=== PATIENT | male | born 1985 | race Two or more races ===

== ENCOUNTER 2018-11-14 11:40 | Inpatient (IN) | payer MEDICAID ==
[2018-11-14] VITALS (9 sets, daily range): BP systolic 114–131; BP diastolic 68–79
[~2018-11-14] VITALS: Ht 172.7 cm; Wt 94.1 kg
--- NOTE | 2018-11-14 11:54 | NUR ---
ED Nurse Note: Pt came in from home due to upper abdomen that radiates to RLQ abdomen x 10 days, also c/o fever, chills, and nausea. HR 107, Oral temp 100.7F at triage. AOx4, other VSS. Will cont to monitor.
[2018-11-14] MEDS ORDERED: Acetaminophen 500mg (ES) tab ORAL ONE (12:15)
[2018-11-14 12:34] LABS: APPEARANCE,URINE CLEAR; BILIRUBIN, URINE NEGATIVE (NEGATIVE); COLOR,URINE BROWN; GLUCOSE, URINE (UA) NEGATIVE (NEGATIVE); KETONES,URINE 2+ (NEGATIVE); LEUKOCYTE ESTERASE ,URINE 1+ (NEGATIVE); NITRITE,URINE NEGATIVE (NEGATIVE); PH,URINE 6 (4.5-8.0); PROTEIN,URINE 2+ (NEGATIVE); UROBILINOGEN,URINE 1 MG/DL (0.0-1.0)
--- NOTE | 2018-11-14 12:36 | Emergency Room Report ---
History of Present Illness General Chief Complaint: Abdominal Pain Source: Patient Present Illness HPI 33-year-old male with no significant past medical history here complaining of 10 days of abdominal pain and nausea. Patient reports that he started having abdominal pain in the epigastric region 10 days ago after eating a fatty meal which is now gradually radiating to the right upper quadrant mid epigastric as well as right lower quadrant. Patient is rating the pain 7 out of 10 with radiation intermittent. Has not taken medication for pain. Patient reports that he started having low-grade fever about a week ago and has been fluctuating ever since. Denies bloody emesis, diarrhea, constipation, blood in stool. Denies recent URI symptoms recent travel. Denies alcohol intake, smoking, drug use. Denies any history of surgeries. Denies urinary symptoms, hematuria, testicular pain and swelling. Allergies: Coded Allergies: No Known Allergies (Unverified , 11/14/18) Patient History Past Medical History: see triage record Past Surgical History: unable to obtain Pertinent Family History: none Immunizations: UTD Reviewed Nursing Documentation: PMH: Agreed; PSxH: Agreed Nursing Documentation-PMH Past Medical History: No Stated History Review of Systems All Other Systems: negative except mentioned in HPI Physical Exam Vital Signs Date Time Temp Pulse Resp B/P (MAP) Pulse Ox O2 Delivery O2 Flow Rate FiO2 11/14/18 11:47 100.8 107 18 124/72 (89) 96 Room Air Sp02 EP Interpretation: reviewed, normal General Appearance: normal inspection, well appearing, no apparent distress, alert, GCS 15 Head: normocephalic, atraumatic Eyes: bilateral eye normal inspection, bilateral eye PERRL ENT: normal ENT inspection, hearing grossly normal Neck: normal inspection, full range of motion, supple Respiratory: normal inspection, chest non-tender, lungs clear, normal breath sounds, no wheezing Cardiovascular #1: normal inspection, normal peripheral pulses, no edema, no murmur, normal capillary refill Gastrointestinal: no mass, no organomegaly, no peritonitis, no bruit, no pulsatile mass, guarding - Epigastric, right upper quadrant, right lower quadrant. pos McBurney's Rovsing's. neg Obturator and psoas Rectal: deferred Genitourinary: no CVA tenderness Musculoskeletal: normal inspection, back normal Neurologic: normal inspection, alert, oriented x3 Psychiatric: normal inspection, judgement/insight normal Skin: no rash Lymphatic: normal inspection, no adenopathy Medical Decision Making PA Attestation All my diagnosis and treatment plans were reviewed ad discussed with my supervising physician Dr. Liz Diagnostic Impression: Primary Impression: Appendicitis with perforation ER Course 33-year-old male with no significant past medical history here complaining of 10 days of abdominal pain and nausea. Patient reports that he started having abdominal pain in the epigastric region 10 days ago after eating a fatty meal which is now gradually radiating to the right upper quadrant mid epigastric as well as right lower quadrant. Patient is rating the pain 7 out of 10 with radiation intermittent. Has not taken medication for pain. Patient reports that he started having low-grade fever about a week ago and has been fluctuating ever since. Denies bloody emesis, diarrhea, constipation, blood in stool. Denies recent URI symptoms recent travel. Denies alcohol intake, smoking, drug use. Denies any history of surgeries. Denies urinary symptoms, hematuria, testicular pain and swelling. Ddx considered but are not limited to: appendicitis, cholycisitis, gastritis, gasthroentritis, UTI, pylonephritis, SBO, diverticulitis, influenza with GI manifestation, OH, Vital signs: are WNL, pt. is afebrile H&PE are most consistent with: Appendicitis ORDERS: abdominal CT, abdominal pain set, EKG, ED INTERVENTIONS: IV fluids, Pepcid, Tylenol, Zofran, Zosyn Patient was admited with diagnosis of appendicitis to Dr. Cardenas and sucarltonon Dr Chang under supervision of : Shalonda pt stable at time of admission wbc 13.8 EKG Diagnostic Results Rate: normal Rhythm: NSR ST Segments: no acute changes Chest X-Ray Diagnostic Results Chest X-Ray Diagnostic Results : Chest X-Ray Ordered: Yes # of Views/Limited/Complete: 1 View Indication: Other EP Interpretation: Yes PA Xray: Interpretation reviewed, by supervising MD, and agrees with findings. Interpretation: no consolidation, no effusion, no pneumothorax Impression: No acute disease Electronically Signed by: teresita davalos PA-C CT/MRI/US Diagnostic Results CT/MRI/US Diagnostic Results : Imaging Test Ordered: abd/pelvis CT contrast Impression appendicis and inflammation at site of appendix Last Vital Signs Date Time Temp Pulse Resp B/P (MAP) Pulse Ox O2 Delivery O2 Flow Rate FiO2 11/14/18 11:56 107 18 Room Air 11/14/18 11:47 100.8 124/72 (89) 96 Disposition: ADMITTED INPATIENT Condition: Stable Scripts No Active Prescriptions or Reported Meds Teresita Palacio Nov 14, 2018 12:36
[2018-11-14 12:44] LABS: BASOPHILS % (AUTO) 0.4 % (0.0-2.0); EOSINOPHILS % (AUTO) 0.2 % (0.0-3.0); HEMOGLOBIN 13.7 G/DL (14.2-18.0); LYMPHOCYTES % (AUTO) 7.9 % (20.0-45.0); MEAN CORPUSCULAR VOLUME 88 FL (80-99); MONOCYTES % (AUTO) 8.4 % (1.0-10.0); NEUTROPHILS % (AUTO) 83.1 % (45.0-75.0); PLATELET COUNT 375 K/UL (150-450); RED BLOOD COUNT 4.67 M/UL (4.70-6.10); RED CELL DISTRIBUTION WIDTH 10.5 % (11.6-14.8); WHITE BLOOD COUNT 13.8 K/UL (4.8-10.8)
--- NOTE | 2018-11-14 12:54 | Diagnostic Imaging Report ---
Indication: Chest pain Comparison: None A single view chest radiograph was obtained. Findings: Cardiomediastinal appearance is within normal limits for age. The lungs are clear. Pulmonary vascularity is appropriate. The diaphragmatic contour is smooth and costophrenic angles are sharp. No pleural effusions are identified. The bones are unremarkable. Impression: No acute findings
[2018-11-14 13:10] LABS: ALANINE AMINOTRANSFERASE 74 U/L (12-78); ALBUMIN 3.4 G/DL (3.4-5.0); ALBUMIN/GLOBULIN RATIO 0.6 (1.0-2.7); ALKALINE PHOSPHATASE 152 U/L (46-116); ANION GAP 10 mmol/L (5-15); ASPARTATE AMINO TRANSFERASE 20 U/L (15-37); BILIRUBIN,TOTAL 0.9 MG/DL (0.2-1.0); BLOOD UREA NITROGEN 11 mg/dL (7-18); CALCIUM 9.2 MG/DL (8.5-10.1); CARBON DIOXIDE 27 MMOL/L (21-32); CHLORIDE 102 MMOL/L (98-107); CREATINE KINASE 90 U/L (26-308); POTASSIUM 3.9 MMOL/L (3.5-5.1); SODIUM 139 MMOL/L (136-145)
--- NOTE | 2018-11-14 13:40 | Diagnostic Imaging Report ---
Indication: Abdominal pain Technique: Continuous helical transaxial imaging of the abdomen and pelvis was obtained from the lung bases to the pubic symphysis. No intravenous contrast was administered. Coronal 2-D reformats were also obtained. Automatic Exposure Control was utilized. Total Dose length Product (DLP): 968.[address] Dose Index Volume (CTDIvol): 17.49 mGy Comparison: none Findings: The lung bases are clear. Nonenhanced solid organs are grossly unremarkable. In the right lower quadrant there is a marked amount of inflammation present. The appendix is not identified but there are 2 calcifications within the area of inflammation or phlegmon. There is no fluid collection that is drainable. There are small nodes adjacent mesentery which are probably reactive or inflammatory. There is thickening of the anterior pararenal fascia due to the inflammation. Bowel gas pattern is nonobstructive. Bladder is nondistended. There is no hydronephrosis. IMPRESSION: Marked inflammation in the right lower quadrant in the expected location of the appendix. 2 calcifications in the central aspect of what appears to be a phlegmon may be appendicoliths. The findings are concerning for acute appendicitis with rupture. No drainable abscess identified. The CT scanner at [facility] is accredited by the [employer] and the scans are performed using dose optimization techniques as appropriate to a performed exam including Automatic Exposure control.
[2018-11-14] MEDS ORDERED: Piperacillin/Tazobactam 3.375 GM in NS 110 ML IVPB ONE (14:00)
--- NOTE | 2018-11-14 14:15 | NUR ---
ED Nurse Note: Pt ambulates to the bathroom with steady gait.
--- NOTE | 2018-11-14 15:17 | NUR ---
ED Nurse Note: Reprot given to MINH Alonso at ext [phone]. Pt to be transfered to room 314-1 on [facility] per protocol.
--- NOTE | 2018-11-14 15:45 | NUR ---
NURSE NOTES: Pt a/o x 4, Macedonian speaking. Pt came to the unit on the gurney with . c/o abdominal pain as 11/19. Pt keep NPO. IV is patent. Unit orientation was given. Bed in lowest position, call light within reach. Will continue to monitor.
[2018-11-14] MEDS ORDERED: Morphine Sulfate 2mg/ml Inj(IV/IM USE ONLY) IVP PRN (16:00)
--- NOTE | 2018-11-14 17:45 | History and Physical Report ---
DATE OF ADMISSION: 11/14/2018 REASON FOR ADMISSION: 1. Abdominal pain. 2. Ruptured appendix. HISTORY OF PRESENT ILLNESS: The patient is a 33-year-old gentleman with no significant past medical history, who presented to emergency room complaining of 10 days of abdominal pain, nausea. The patient had no vomiting or diarrhea. The patient stated abdominal pain was mainly in the epigastric region, starting 10 days ago, which he attributed to a heavy fatty meal, but had progressively gotten worse. As such, he presented in the emergency room for further evaluation and care. CT of the abdomen and pelvis was conducted, which demonstrated marked inflammation in the right lower quadrant, expected location of the appendix with 2 calcifications in the central aspect, which appeared to be a phlegmon or appendicolith. The findings were concerning for acute appendicitis with ruptured. No drainable abscess was identified. As such, the patient was admitted. General Surgery was consulted. ALLERGIES: No known drug allergies. PAST MEDICAL HISTORY: None. PAST SURGICAL HISTORY: None. FAMILY HISTORY: Positive for hypertension and diabetes. REVIEW OF SYSTEMS: NEUROLOGIC: The patient denies headache, change in vision, syncope, presyncopal episodes. CARDIOVASCULAR: No current chest pain, palpitations, or angina. PULMONARY: No difficulty breathing. No cough or sputum. GASTROINTESTINAL/GENITOURINARY: The patient is having nausea and abdominal pain. No diarrhea. ENDOCRINOLOGY: No night sweats, fever, or chills. MUSCULOSKELETAL: The patient is feeling weak, tired, and fatigued. LABORATORY DATA: Laboratories dated November 14, 2018, white cell count 13.8, hemoglobin 13.7, and platelet count 375,000. Sodium 139, potassium 3.9, BUN 11, creatinine 1. Troponin zero. PHYSICAL EXAMINATION: VITAL SIGNS: Blood pressure 121/68, respiratory rate 20, pulse 98, temperature 99.8, 99% oxygen saturation on room air. GENERAL: The patient is awake, alert, not in distress. HEENT: Extraocular muscles intact. No lymphadenopathy noted. Oropharyngeal mucosa is clear and dry. CARDIOVASCULAR: S1, S2. No rubs or gallops. Regular rate. PULMONARY: Clear to auscultation bilaterally. No rales, rhonchi, or wheezes. ABDOMINAL: Mild right lower quadrant tenderness in the epigastric area with fair bowel sounds. EXTREMITIES: No edema noted. ASSESSMENT AND PLAN: 1. Abdominal pain secondary to ruptured appendix. At this time, the patient will be initiated on IV antibiotics and fluids along with p.o. pain medication. General surgeon will be consulted for appendicitis with rupture and appendectomy. 2. Volume depletion. We will continue IV fluids. 3. DVT prophylaxis, with SCDs. Rubens Cole MD DR: Chau JOB#: [id number] CC:
[2018-11-14] MEDS ORDERED: Sterile Water Irrig 1000ml IRRIG ONE (19:00)
[2018-11-14] MEDS ORDERED: NS Irrig 1000ml ONE (19:00)
[2018-11-14] MEDS ORDERED: Neostigmine 1mg/ml 10ml Inj ONE (19:00)
[2018-11-14] MEDS ORDERED: LR 1000ml ONE (19:00)
--- NOTE | 2018-11-14 19:29 | Pre-Procedure Note/Attestation ---
Pre-Procedure Note/Attestation Complete Prior to Procedure Planned Procedure: not applicable Procedure Narrative: Exploratory Laparotomy Indications for Procedure Pre-Operative Diagnosis: Acute perforated appendicitis Attestation I attest that I discussed the nature of the procedure; its benefits; risks and complications; and alternatives (and the risks and benefits of such alternatives ), prior to the procedure, with the patient (or the patient's legal union representative). I attest that, if there was a reasonable possibility of needing a blood transfusion, the patient (or the patient's legal union representative) was given the [facility] standardized written summary, pursuant to the [place] Blood Safety Act ([place] Health and Safety Code # 1645, as amended). I attest that I re-evaluated the patient just prior to the surgery and that there has been no change in the patient's H&P, except as documented below: Lanie Chang MD Nov 14, 2018 19:29
--- NOTE | 2018-11-14 19:30 | NUR ---
NURSE NOTES: Patient left the unit for surgery.
--- NOTE | 2018-11-14 19:45 | NUR ---
HAND-OFF: Report given to MINH Salmeron.
--- NOTE | 2018-11-14 19:45 | Consultation ---
DATE OF CONSULTATION: 11/14/2018 PREOPERATIVE CONSULTATION CONSULTING PHYSICIAN: Lanie Chang M.D. REFERRING PHYSICIAN: ER physician. REASON FOR CONSULTATION: Abdominal pain. HISTORY OF PRESENT ILLNESS: This is a 33-year-old male, who presented to emergency room complaining of abdominal pain for 1 week. He stated that the pain initially was at epigastrium and then it localized at right lower quadrant. He had nausea, but no vomiting. He had a normal bowel movement today. He stated that in the last 3 or 4 days, he has been having fever and chills, but he denies cough, dysuria, or frequency. He denies previous history of similar pain. PAST MEDICAL HISTORY: He denies allergies, asthma, diabetes, hypertension, cardiac and renal diseases. SURGERIES: Include ORIF of the right tibia. MEDICATIONS: None. SOCIAL HISTORY: The patient is a 33-year-old male, who is and father of three children. He works as a route delivery driver. Denies smoking and drinking. REVIEW OF SYSTEMS: Noncontributory. PHYSICAL EXAMINATION: GENERAL: The patient appeared to be a well-developed, well-nourished, 33-year-old, male, lying on the bed, complaining of abdominal pain. HEENT: Head is normocephalic and atraumatic. Eyes, pupils are equal, round, and reactive to light. Mouth is clear. NECK: There is no palpable thyromegaly or adenopathy. CHEST: Clear to auscultation and percussion. HEART: There is no gallop or murmur. S1 and S2 are within normal limits. ABDOMEN: Soft and flat with tenderness and rebound tenderness at right lower quadrant. Bowel sounds are present. There is no palpable organomegaly. GENITAL: Deferred. EXTREMITIES: Within normal limits. LABORATORY DATA: CBC has shown a WBC of 13,000 with a left shift. Chemistry and UA is normal. CAT scan of the abdomen has been interpreted as acute appendicitis with rupture. There is no drainable abscess, but the patient had a phlegmon. ASSESSMENT: Acute abdomen. PLAN: After rehydration, the patient will undergo exploratory laparotomy, possible appendectomy with drainage of the abscess. The risks and benefits have been explained to him. He understood and granted the consent. Lanie Chang M.D. DR: TOM JOB#: [id number] CC:
[2018-11-14] MEDS ORDERED: Bacitracin 50000 Units Vial ONE (19:47)
[2018-11-14] MEDS ORDERED: NeoSporin Gu Irrig 1ml Amp IRRIG ONE (19:47)
[2018-11-14] MEDS ORDERED: Propofol 200mg/20ml IV ONE ×2 (19:48→19:50)
[2018-11-14] MEDS ORDERED: Dexamethasone 4mg/ml vial ONE (19:48)
[2018-11-14] MEDS ORDERED: Lidocaine 1% MPF 10mg/ml 5ml ONE (19:48)
[2018-11-14] MEDS ORDERED: fentaNYL 100 mcg/2 mL IV ONE (19:49)
[2018-11-14] MEDS ORDERED: Metoclopramide 10mg/2ml Inj IVP PRN ×2 (20:15→23:01)
[2018-11-14] MEDS ORDERED: Hydromorphone 0.5mg/0.5ml inj IVP PRN (20:15)
[2018-11-14] MEDS ORDERED: LORazepam Inj 2mg/ml 1ml IV PRN (20:15)
[2018-11-14] MEDS ORDERED: fentaNYL 100 mcg/2 mL IV PRN (20:15)
[2018-11-14] MEDS ORDERED: Ketorolac 30mg Inj IV PRN ×2 (20:15)
[2018-11-14] MEDS ORDERED: Acetaminophen (Non formulary) 100 ML IV ONE (20:15)
[2018-11-14] MEDS ORDERED: HYDROcodone/Acetamin 7.5/325 tab ORAL PRN (20:15)
[2018-11-14] MEDS ORDERED: DiphenhydrAMINE 50mg/ml Inj IVP PRN (20:15)
[2018-11-14] MEDS ORDERED: Labetalol 5mg/ml 20ml vial IV PRN (20:15)
[2018-11-14] MEDS ORDERED: HYDROcodone/Acetamin 5/325 tab ORAL PRN (20:15)
[2018-11-14] MEDS ORDERED: Midazolam 2mg/2ml Inj IVP PRN (20:15)
[2018-11-14] MEDS ORDERED: oxyCODONE HCL/Acetaminophen 5/325mg ORAL PRN (20:15)
[2018-11-14] MEDS ORDERED: Atropine Sulfate 0.4mg/ml inj IVP PRN (20:15)
[2018-11-14] MEDS ORDERED: Meperidine 50mg/ml Inj(FOR RIGORS ONLY) IVP PRN (20:15)
[2018-11-14] MEDS ORDERED: LR 1000ml 1,000 ML IVLG SCH (20:15)
--- NOTE | 2018-11-14 20:15 | Anethesia Preoperative Eval ---
Anesthesia Pre-op PMH/ROS General Date of Evaluation: Nov 14, 2018 Time of Evaluation: 19:29 Anesthesiologist: Bronwyn ASA Score: ASA 2 - Emergency Mallampati Score Class I : Soft palate, uvula, fauces, pillars visible Class II: Soft palate, uvula, fauces visible Class III: Soft palate, base of uvula visible Class IV: Only hard plate visible Mallampati Classification: Class II Surgeon: Charlene Diagnosis: Abd Pain Surgical Procedure: Exploratory Laparotomy Anesthesia History: none Family History: no anesthesia problems Allergies: Coded Allergies: No Known Allergies (Unverified , 11/14/18) Medications: see eMAR Patient NPO?: Yes NPO Date: Nov 14, 2018 NPO Time: 0800 Past Medical History PSxH Narrative: Ortho Sx Anesthesia Pre-op Phys. Exam Physician Exam Last Vital Signs Date Time Temp Pulse Resp B/P (MAP) Pulse Ox O2 Delivery O2 Flow Rate FiO2 11/14/18 15:50 99.1 77 16 131/76 (94) 99 11/14/18 15:46 Room Air Constitutional: NAD Neurologic: CN 2-12 intact Cardiovascular: RRR Respiratory: CTA Gastrointestinal: S/NT/ND Airway Exam Mallampati Score: Class II MO: full ROM: limited Teeth: intact Anesthesia Pre-op A/P Labs Hematology Test 11/14/18 12:22 White Blood Count 13.8 K/UL (4.8-10.8) H Red Blood Count 4.67 M/UL (4.70-6.10) L Hemoglobin 13.7 G/DL (14.2-18.0) L Hematocrit 41.0 % (42.0-52.0) L Mean Corpuscular Volume 88 FL (80-99) Mean Corpuscular Hemoglobin 29.3 PG (27.0-31.0) Mean Corpuscular Hemoglobin Concent 33.3 G/DL (32.0-36.0) Red Cell Distribution Width 10.5 % (11.6-14.8) L Platelet Count 375 K/UL (150-450) Mean Platelet Volume 6.9 FL (6.5-10.1) Neutrophils (%) (Auto) 83.1 % (45.0-75.0) H Lymphocytes (%) (Auto) 7.9 % (20.0-45.0) L Monocytes (%) (Auto) 8.4 % (1.0-10.0) Eosinophils (%) (Auto) 0.2 % (0.0-3.0) Basophils (%) (Auto) 0.4 % (0.0-2.0) Coagulation Test 11/14/18 12:22 Prothrombin Time 10.8 SEC (9.30-11.50) Prothromb Time International Ratio 1.0 (0.9-1.1) Activated Partial Thromboplast Time 33 SEC (23-33) Chemistry Test 11/14/18 12:22 Sodium Level 139 MMOL/L (136-145) Potassium Level 3.9 MMOL/L (3.5-5.1) Chloride Level 102 MMOL/L (98-107) Carbon Dioxide Level 27 MMOL/L (21-32) Anion Gap 10 mmol/L (5-15) Blood Urea Nitrogen 11 mg/dL (7-18) Creatinine 1.0 MG/DL (0.55-1.30) Estimat Glomerular Filtration Rate > 60 mL/min (>60) Glucose Level 154 MG/DL (74-106) H Calcium Level 9.2 MG/DL (8.5-10.1) Total Bilirubin 0.9 MG/DL (0.2-1.0) Aspartate Amino Transf (AST/SGOT) 20 U/L (15-37) Alanine Aminotransferase (ALT/SGPT) 74 U/L (12-78) Alkaline Phosphatase 152 U/L (46-116) H Total Creatine Kinase 90 U/L (26-308) Troponin I 0.000 ng/mL (0.000-0.056) Total Protein 8.8 G/DL (6.4-8.2) H Albumin 3.4 G/DL (3.4-5.0) Globulin 5.4 g/dL Albumin/Globulin Ratio 0.6 (1.0-2.7) L Lipase 128 U/L (73-393) Risk Assessment & Plan Assessment: ASA 2E Plan: GA, SED, GlideScope Go Pre-Antibiotics Dru Gram Ancef IV Given Within 1 Hr of Incision: Yes Time Given: 20:01 Enrico Barnhart MD Nov 14, 2018 20:15
--- NOTE | 2018-11-14 20:28 | Immediate Post-Op Evaluation ---
Immediate Post-Op Evalulation Immediate Post-Op Evalulation Procedure: Exploratory Laparotomy Date of Evaluation: Nov 14, 2018 Time of Evaluation: 21:50 IV Fluids: 1000 LR Blood Products: 0 Estimated Blood Loss: 25 Urinary Output: 50 Blood Pressure Systolic: 118 Blood Pressure Diastolic: 71 Pulse Rate: 72 Respiratory Rate: 16 O2 Sat by Pulse Oximetry: 95 Temperature (Fahrenheit): 99 Pain Score (1-10): 3 Nausea: No Vomiting: No Complications 0 Patient Status: awake, reacts, patent, extubated, none Hydration Status: adequate Dru Gram Ancef IV Given Within 1 Hr of Incision: Yes Time Given: 20:01 Enrico Barnhart MD Nov 14, 2018 20:28
--- NOTE | 2018-11-14 20:30 | 48 Hour Post Anesthesia Eval ---
Post Anesthesia Evaluation Procedure: Exploratory Laparotomy Date of Evaluation: Nov 14, 2018 Time of Evaluation: 23:53 Blood Pressure Systolic: 123 0: 67 Pulse Rate: 73 Respiratory Rate: 18 Temperature (Fahrenheit): 98.7 O2 Sat by Pulse Oximetry: 97 Airway: patent Nausea: No Vomiting: No Pain Intensity: 3 Hydration Status: adequate Cardiopulmonary Status: Stable Mental Status/LOC: patient returned to baseline Follow-up Care/Observations: 0 Post-Anesthesia Complications: 0 Follow-up care needed: N/A Enrico Barnhart MD Nov 14, 2018 20:30
[2018-11-14] MEDS ORDERED: Zemuron 50mg/5ml Inj IV ONE (20:40)
[2018-11-14] MEDS ORDERED: Glycopyrrolate 0.2mg/ml 1ml Vial ONE (20:55)
--- NOTE | 2018-11-14 21:26 | Brief Operative Note ---
Immediate Post Operative Note Operative Note Pre-op Diagnosis: Acute perforated appendicitis Post-op Diagnosis: same as pre-op Findings: consistent w/pre-op dx studies Surgeon: Edwina Clinical Appeals Auditor: None Anesthesiologist: Dr. Chiu Anesthesia: general Specimen: yes Complications: none Condition: stable Fluids: per anesthesiologist Estimated Blood Loss: volume - 40 ml Drains: other - domonique Implant(s) used?: No Lanie Chang MD Nov 14, 2018 21:26
[2018-11-14] MEDS ORDERED: Piperacillin/Tazobactam 4.5 GM in NS 110 ML IVPB SCH (22:00)
--- NOTE | 2018-11-14 22:45 | NUR ---
NURSE NOTES: Pt came back from PACU after open appendectomy. Receive a report from MINH Figueroa. Pt is asleep but arouse easily by calling name. OP site is clear without bleeding signs. AVI inserted state with serosanguineous drained on right side abdomen. Dean catheter 16 fr. inserted state and patent with dark brown urine. Pain is 5/10 on op site. Will provide prn pain medication. Breathing is even and non labored. No acute distress noted. Keep head up elevated to lung expansion. O2 2L NC inhalation. Lung sound is clear upon auscultation. Decreased bowel sound noted in 4 quadrants. No chilling or febrile sensation noted. Keep NPO after operation with IV fluid hydration. v/s: 108/59-87-18-99.8-93% PA 5/10. Call light within reach. Bed is locked and lowest position. Will continue to monitor.
--- NOTE | 2018-11-14 22:45 | Operative Note - Dictated ---
DATE OF OPERATION: 11/14/2018 PREOPERATIVE DIAGNOSIS: Acute perforated appendicitis. POSTOPERATIVE DIAGNOSIS: Acute perforated appendicitis with abscess. OPERATIONS: 1. Exploratory laparotomy. 2. Appendectomy. 3. Drainage of the intraabdominal abscess. COMPLICATIONS: None. SURGEON: Lanie Chang M.D. FUNDING ANALYST: None. ANESTHESIA: General with endotracheal tube. ANESTHESIOLOGIST: Enrico Barnhart M.D. INDICATION: This is a 33-year-old male, who presented to emergency room complaining of one-week history of abdominal pain and the pain was located at the right lower quadrant and was associated with nausea. He claimed that he had fever and chills. Physical examination showed tenderness and possible mass at the right lower quadrant. The CBC showed WBC of 13,800 with a left shift. CT scan of the abdomen was interpreted as acute perforated appendicitis. DESCRIPTION OF PROCEDURE: The patient was placed supine on the operating table and after general anesthesia with endotracheal tube initially examination under general anesthesia was performed, which showed a large mass at the right lower quadrant of the abdomen and the abdomen was properly prepped and draped and then a midline incision was given from the mid epigastrium to below the umbilicus. This incision was carried sharply through subcutaneous tissue Larry fascia, and peritoneum. Intraabdominal cavity was entered. Exploration was performed, which showed inflammatory mass at the right lower quadrant, this included cecum, omentum, and small bowel. Initially, the omentum was released and then gradually blunt dissection was performed and small bowel was released and at this time, we entered an abscess cavity and large amount of pus was drained. Culture was obtained. The area was completely irrigated and then further exploration was performed. The appendix was identified. The appendix had dense adhesion, which was gradually released. The appendix and mesoappendix were isolated and then they were ligated and resected with the help of the KRISTINA stapler. The cavity was thoroughly irrigated with antibiotic solution. The intraabdominal cavity and pelvis were irrigated with antibiotic solution and then a Bandar drain was placed in pelvis extended in the right paracolic gutter and was brought out from a separate stab wound. The incision was approximated with running suture of #1 Prolene for the fascia and peritoneum, and multiple skin angelique for the skin. The patient tolerated the procedure very well and was transferred to recovery room in stable condition and extubated. The sponge and needle count correct. Estimated blood loss was 40 mL. Condition of the patient at the end of procedure was stable. Lanie Chang M.D. DR: EDISON JOB#: [id number] CC: KARL
[2018-11-14] MEDS ORDERED: Acetaminophen 650 MG SUPP RECTAL PRN (23:01)
[2018-11-14] MEDS: HYDROmorphone 1mg/ml Carpuject IVP PRN (23:08)
[2018-11-14] MEDS: Piperacillin/Tazobactam 4.5 GM in NS 110 ML IVPB SCH (23:08)
[2018-11-14] MEDS: D5 1/2NS w/KCl 20mEq 1,000 ML IV SCH (23:11)
[2018-11-15] VITALS: BP 137/89
[2018-11-15] MEDS ORDERED: NS IVPB ONE (02:00)
[2018-11-15] MEDS ORDERED: GENTAMICIN IVPB ONE (02:00)
[2018-11-15] MEDS: HYDROmorphone 1mg/ml Carpuject IVP PRN ×4 (02:54→21:01)
[2018-11-15 04:00] VITALS: BP 127/73
--- NOTE | 2018-11-15 06:00 | NUR ---
NURSE NOTES: Pt is asleep but awake. Op site is clear without bleeding signs. AVI drained 30ml and urine output 500ml with concentrated color with odor. Pain is controlled with prn pain medication. Will continue to monitor.
[2018-11-15] MEDS: Piperacillin/Tazobactam 4.5 GM in NS 110 ML IVPB SCH ×3 (06:20→22:10)
--- NOTE | 2018-11-15 07:15 | NUR ---
NURSE NOTES: Report received from Faviola WILKINSON, rounds made. Patient sleeping in supine position in bed, significant other at bedside sleeping as well. Patient arousable to name. No distress or SOB on O2 2LNC. Denies need for pain medication at this time. IVF (D51/2+20KCL at 100 ml/h and Zosyn) infusing to LAC, site asymptomatic. Dean patent, draining henry urine to gravity. AVI to right abdomen in place. Abdominal surgical site, CDI. IS at bedside will instruct on use. Bilateral SCDs on. Call light in reach, bed in lowest position, will continue to monitor. Addendum: 11/15/18 at 0834 by Ragini Payne RN Reinforced NPO status, verbalized understanding.
--- NOTE | 2018-11-15 07:28 | NUR ---
HAND-OFF: Report given to MINH Eid.
[2018-11-15 07:31] LABS: HEMATOCRIT 39.6 % (42.0-52.0); HEMOGLOBIN 13.2 G/DL (14.2-18.0); MEAN CORPUSCULAR VOLUME 87 FL (80-99); PLATELET COUNT 365 K/UL (150-450); RED BLOOD COUNT 4.53 M/UL (4.70-6.10); RED CELL DISTRIBUTION WIDTH 10.6 % (11.6-14.8); WHITE BLOOD COUNT 14.6 K/UL (4.8-10.8)
[2018-11-15 08:00] VITALS: BP 128/69
[2018-11-15 08:02] LABS: ANION GAP 8 mmol/L (5-15); BLOOD UREA NITROGEN 11 mg/dL (7-18); CALCIUM 8.5 MG/DL (8.5-10.1); CARBON DIOXIDE 26 MMOL/L (21-32); CHLORIDE 102 MMOL/L (98-107); CREATININE 0.9 MG/DL (0.55-1.30); POTASSIUM 3.8 MMOL/L (3.5-5.1); SODIUM 136 MMOL/L (136-145)
--- NOTE | 2018-11-15 08:32 | Nephrology Progress Note ---
Subjective ROS Limited/Unobtainable: No Allergies: Coded Allergies: No Known Allergies (Unverified , 11/14/18) Subjective A/P 1) Appendicitis- Abx and IVFs - s/p appendectomy - WBC still elevated - DC once cleared by Surgery Objective Last 24 Hour Vital Signs Date Time Temp Pulse Resp B/P (MAP) Pulse Ox O2 Delivery O2 Flow Rate FiO2 11/15/18 04:00 98.5 89 18 127/73 (91) 97 11/15/18 00:00 97.9 89 18 137/89 (105) 96 88 11/14/18 23:00 Nasal Cannula 2.0 11/14/18 22:30 99.2 79 18 114/71 98 Nasal Cannula 3 9 11/14/18 22:20 81 19 120/72 98 Nasal Cannula 3 81 11/14/18 22:00 78 18 122/71 100 Simple Mask 6 78 11/14/18 21:50 77 20 119/76 100 Simple Mask 6 77 11/14/18 21:45 72 19 120/77 99 Simple Mask 6 72 11/14/18 21:39 99.0 76 16 118/71 94 Simple Mask 6 76 11/14/18 21:38 73 18 97 11/14/18 21:36 72 16 95 11/14/18 15:50 99.1 77 16 131/76 (94) 99 11/14/18 15:46 Room Air 11/14/18 15:17 99.8 98 20 121/68 99 Room Air 11/14/18 15:04 100.7 62 19 121/68 99 Room Air 11/14/18 13:37 100.7 67 20 123/79 97 Room Air 11/14/18 13:05 100.7 11/14/18 11:56 107 18 Room Air 11/14/18 11:47 100.8 107 18 124/72 (89) 96 Room Air Intake and Output 11/14/18 11/15/18 19:00 07:00 Intake Total 1110 ml 350 ml Output Total 675 ml Balance 1110 ml -325 ml Intake Oral 0 ml IV Total 1110 ml 350 ml Output Urine Total 600 ml Drainage Total 55 ml Estimated Blood Loss 20 ml # Voids 3 Laboratory Tests 11/14/18 11:56: Urine Color Brown, Urine Appearance Clear, Urine pH 6, Urine Specific [place] 1.015, Urine Protein 2+H, Urine Glucose (UA) Negative, Urine Ketones 2+H, Urine Blood 1+H, Urine Nitrite Negative, Urine Bilirubin Negative, Urine Urobilinogen 1H, Urine Leukocyte Esterase 1+H, Urine RBC 0-2H, Urine WBC 0-2, Urine Squamous Epithelial Cells None, Urine Bacteria None, Urine Mucus FewH, Urine Opiates Screen Negative, Urine Barbiturates Screen Negative, Phencyclidine (PCP) Screen Negative, Urine Amphetamines Screen Negative, Urine Benzodiazepines Screen Negative, Urine Cocaine Screen Negative, Urine Marijuana (THC) Screen Negative 11/14/18 12:22: White Blood Count 13.8H, Red Blood Count 4.67L, Hemoglobin 13.7L, Hematocrit 41.0L, Mean Corpuscular Volume 88, Mean Corpuscular Hemoglobin 29.3, Mean Corpuscular Hemoglobin Concent 33.3, Red Cell Distribution Width 10.5L, Platelet Count 375, Mean Platelet Volume 6.9, Neutrophils (%) (Auto) 83.1H, Lymphocytes (%) (Auto) 7.9L, Monocytes (%) (Auto) 8.4, Eosinophils (%) (Auto) 0.2, Basophils (%) (Auto) 0.4, Prothrombin Time 10.8, Prothromb Time International Ratio 1.0, Activated Partial Thromboplast Time 33, Sodium Level 139, Potassium Level 3.9, Chloride Level 102, Carbon Dioxide Level 27, Anion Gap 10, Blood Urea Nitrogen 11, Creatinine 1.0, Estimat Glomerular Filtration Rate > 60, Glucose Level 154H, Calcium Level 9.2, Total Bilirubin 0.9, Aspartate Amino Transf (AST/SGOT) 20, Alanine Aminotransferase (ALT/SGPT) 74, Alkaline Phosphatase 152H, Total Creatine Kinase 90, Troponin I 0.000, Total Protein 8.8H, Albumin 3.4, Globulin 5.4, Albumin/Globulin Ratio 0.6L, Lipase 128 , Serum Alcohol < 3 11/15/18 05:54: White Blood Count 14.6H, Red Blood Count 4.53L, Hemoglobin 13.2L, Hematocrit 39.6L, Mean Corpuscular Volume 87, Mean Corpuscular Hemoglobin 29.1, Mean Corpuscular Hemoglobin Concent 33.3, Red Cell Distribution Width 10.6L, Platelet Count 365, Mean Platelet Volume 6.9, Neutrophils (%) (Auto) , Lymphocytes (%) (Auto) , Monocytes (%) (Auto) , Eosinophils (%) (Auto) , Basophils (%) (Auto) , Sodium Level 136, Potassium Level 3.8, Chloride Level 102 , Carbon Dioxide Level 26, Anion Gap 8, Blood Urea Nitrogen 11, Creatinine 0.9, Estimat Glomerular Filtration Rate > 60, Glucose Level 155H, Calcium Level 8.5, Neutrophils % (Manual) [Pending], Lymphocytes % (Manual) [Pending], Platelet Estimate [Pending], Platelet Morphology [Pending] Height (Feet): 5 Height (Inches): 8.00 Weight (Pounds): 200 Rubens Cole MD Nov 15, 2018 08:31
[2018-11-15] MEDS: Pantoprazole Inj IVP SCH (09:13)
[2018-11-15] MEDS: D5 1/2NS w/KCl 20mEq 1,000 ML IV SCH ×2 (09:13→19:01)
[2018-11-15] MEDS: Heparin 5000 units/ml inj SUBQ SCH ×2 (09:14→21:00)
--- NOTE | 2018-11-15 09:30 | NUR ---
NURSE NOTES: Demonstrated IS use, patient returned demonstration, needs further teaching and reinforcement. Encouraged patient to perform 10x/hr with coughing and abdominal splint (pillow to abdomen). Instructed patient on post op activity orders, to be out of bed. Will assist patient to chair later and to ambulate as tolerated.
--- NOTE | 2018-11-15 11:35 | NUR ---
NURSE NOTES: Assisted patient to dangle at bedside, then stand, and transfer to chair. Tolerated transfer fair. Up to chair, O2 2LNC in place, no SOB, slight nausea, that subsided right away. AVI and FC remains intact. Reinforced IS use with abdominal splint. Call light in reach, family at bedside. Will continue to monitor.
[2018-11-15 12:00] VITALS: BP 132/83
--- NOTE | 2018-11-15 13:06 | General Surgery Progress Note ---
General Surgery-Progress Note Subjective Symptoms: improved Objective Last 24 Hour Vital Signs Date Time Temp Pulse Resp B/P (MAP) Pulse Ox O2 Delivery O2 Flow Rate FiO2 11/15/18 12:00 99.0 75 19 132/83 (99) 98 11/15/18 09:00 Nasal Cannula 2.0 11/15/18 08:00 99.1 94 18 128/69 (88) 99 11/15/18 04:00 98.5 89 18 127/73 (91) 97 11/15/18 00:00 97.9 89 18 137/89 (105) 96 88 11/14/18 23:00 Nasal Cannula 2.0 11/14/18 22:30 99.2 79 18 114/71 98 Nasal Cannula 3 9 11/14/18 22:20 81 19 120/72 98 Nasal Cannula 3 81 11/14/18 22:00 78 18 122/71 100 Simple Mask 6 78 11/14/18 21:50 77 20 119/76 100 Simple Mask 6 77 11/14/18 21:45 72 19 120/77 99 Simple Mask 6 72 11/14/18 21:39 99.0 76 16 118/71 94 Simple Mask 6 76 11/14/18 21:38 73 18 97 11/14/18 21:36 72 16 95 11/14/18 15:50 99.1 77 16 131/76 (94) 99 11/14/18 15:46 Room Air 11/14/18 15:17 99.8 98 20 121/68 99 Room Air 11/14/18 15:04 100.7 62 19 121/68 99 Room Air 11/14/18 13:37 100.7 67 20 123/79 97 Room Air 11/14/18 13:05 100.7 I&O Intake and Output 11/14/18 11/15/18 18:59 06:59 Intake Total 1110 ml 1040 ml Output Total 675 ml Balance 1110 ml 365 ml Intake Oral 0 ml IV Total 1110 ml 1040 ml Output Urine Total 600 ml Drainage Total 55 ml Estimated Blood Loss 20 ml # Voids 3 Dressing: dry Drains: domonique Respiratory: clear Abdomen: soft, tenderness, absent bowel sounds Extremities: no tenderness Laboratory Tests Test 11/15/18 05:54 White Blood Count 14.6 K/UL (4.8-10.8) H Red Blood Count 4.53 M/UL (4.70-6.10) L Hemoglobin 13.2 G/DL (14.2-18.0) L Hematocrit 39.6 % (42.0-52.0) L Mean Corpuscular Volume 87 FL (80-99) Mean Corpuscular Hemoglobin 29.1 PG (27.0-31.0) Mean Corpuscular Hemoglobin Concent 33.3 G/DL (32.0-36.0) Red Cell Distribution Width 10.6 % (11.6-14.8) L Platelet Count 365 K/UL (150-450) Mean Platelet Volume 6.9 FL (6.5-10.1) Neutrophils (%) (Auto) % (45.0-75.0) Lymphocytes (%) (Auto) % (20.0-45.0) Monocytes (%) (Auto) % (1.0-10.0) Eosinophils (%) (Auto) % (0.0-3.0) Basophils (%) (Auto) % (0.0-2.0) Differential Total Cells Counted 100 Neutrophils % (Manual) 87 % (45-75) H Lymphocytes % (Manual) 7 % (20-45) L Monocytes % (Manual) 6 % (1-10) Eosinophils % (Manual) 0 % (0-3) Basophils % (Manual) 0 % (0-2) Band Neutrophils 0 % (0-8) Platelet Estimate Adequate Platelet Morphology Normal Red Blood Cell Morphology Normal Sodium Level 136 MMOL/L (136-145) Potassium Level 3.8 MMOL/L (3.5-5.1) Chloride Level 102 MMOL/L (98-107) Carbon Dioxide Level 26 MMOL/L (21-32) Anion Gap 8 mmol/L (5-15) Blood Urea Nitrogen 11 mg/dL (7-18) Creatinine 0.9 MG/DL (0.55-1.30) Estimat Glomerular Filtration Rate > 60 mL/min (>60) Glucose Level 155 MG/DL (74-106) H Calcium Level 8.5 MG/DL (8.5-10.1) Assessment Additional Comments S/P Perfed appy with abscess Plan Additional Comments continue present treatment Lanie Chang MD Nov 15, 2018 13:06
--- NOTE | 2018-11-15 14:15 | NUR ---
NURSE NOTES: Notified Dr. Cole for ID consult per Dr. Chang. Dr. Kingston to consult, I will follow up as needed.
--- NOTE | 2018-11-15 14:55 | NUR ---
NURSE NOTES: Patient instructed on orders to discontinue FC, verbalized understanding. Emptied 1000 ml/orange clear urine at 1455 and discontinued FC, without difficulty. Urinal provided. Patient instructed to void and notify RN with first void. Will continue to monitor.
[2018-11-15 15:57] VITALS: BP 127/79
[2018-11-15] MEDS ORDERED: Tubing IV Secondary IV ONE (16:04)
[2018-11-15] MEDS ORDERED: NS 500ML ONE (16:04)
--- NOTE | 2018-11-15 18:33 | NUR ---
CASE MANAGEMENT: REVIEW 33Y/M PRESENTED TO ED FROM HOME CC: UPPER ABD PAIN X10 DAYS SI: APPENDICITIS w/RUPTURE EXPLORATORY LAPAROTOMY 11/14 T 100.8 HR 107 RR 18 BP 124/72 SAT 96% ROOM AIR WBC 13.8 ALK PHOS 152 IS: TYLENOL PO X1 PEPCID IV X1 ZOFRAN IV X1 ZOSYN IV X1 NS IVF BOLUS X1 LACTATED RINGER'S IVF X1 PROPOFOL IV X1 FENTANYL IV X1 VERSED IV X1 PATIENT ADMITTED TO MED/SURG UNIT 11/14/2018 DCP: PATIENT IS FROM HOME
--- NOTE | 2018-11-15 18:45 | NUR ---
NURSE NOTES: Patient voided 175 ml henry/clear in urinal, then up ambulating in halls x2 at 1745, now currently in chair, tolerating activity well, denies need for pain medication at this time. Family at bedside.
--- NOTE | 2018-11-15 19:45 | NUR ---
NURSE NOTES: Receive a report from MINH Eid. Done rounds. Sitting on the chair with family member, . Abdomen op site is clear without bleeding signs. Pain tolerable state. Explain to get pain medication as needed to encourage for ambulation. After harper cath remeval, does not feel residual sensation. Continue on NPO with IV fluid hydration. Will continue to monitor.
--- NOTE | 2018-11-15 19:45 | NUR ---
HAND-OFF: Report given to Faviola WILKINSON. AVI output 60 ml.
[2018-11-15 20:00] VITALS: BP 131/76
--- NOTE | 2018-11-15 22:00 | NUR ---
NURSE NOTES: Pt is awake and alert. No acute distress noted. Breathing is even and non labored. Lung sound is clear but decreased. BT checked as 99.1 F. Reinforce to use I/S every hour 10x while awake with pillow support. Pt expresses understanding. No chilling or febrile sensation. Pain relieved by 3/10 after prn pain medication. AVI inserted state on right abdomen with serosanguineous color. Will continue to monitor.
[2018-11-16] VITALS: BP 128/83
[2018-11-16] MEDS: Hydromorphone 0.5mg/0.5ml inj IVP PRN (01:24)
[2018-11-16] MEDS: D5 1/2NS w/KCl 20mEq 1,000 ML IV SCH ×2 (04:29→14:02)
[2018-11-16 04:31] VITALS: BP 131/77
[2018-11-16] MEDS: Piperacillin/Tazobactam 4.5 GM in NS 110 ML IVPB SCH ×3 (05:29→22:34)
[2018-11-16] MEDS: HYDROmorphone 1mg/ml Carpuject IVP PRN ×3 (06:30→17:10)
--- NOTE | 2018-11-16 07:10 | NUR ---
NURSE NOTES: Report received from Kristen RN/Faviola RN, rounds made. Patient alert, oriented x4, calm. No distress on RA. Abdominal pain 3/10 to surgical site. AVI intact, light serosanguineous drainage noted. Bilateral SCDs off. IVF (D51/2+20K at 100 ml/hr and Zosyn) infusing to LAC, site asymptomatic. Reinforced NPO status. Spouse at bedside. Call light in reach, bed in lowest position, will continue to monitor.
--- NOTE | 2018-11-16 07:10 | NUR ---
HAND-OFF: Report given to MINH Eid. Done rounds.
--- NOTE | 2018-11-16 07:32 | Nephrology Progress Note ---
Assessment/Plan Assessment/Plan: A/P 1) Appendicitis- Abx and IVFs to continue - s/p appendectomy - WBC still elevated. AM labs elevated - ID consulted 2) DVT prophylaxsis- SCDs Subjective Date patient seen: Nov 16, 2018 Time patient seen: 07:31 ROS Limited/Unobtainable: No Allergies: Coded Allergies: No Known Allergies (Unverified , 11/14/18) Subjective Patient still NPO with AVI drain. Mild abd pain Objective Last 24 Hour Vital Signs Date Time Temp Pulse Resp B/P (MAP) Pulse Ox O2 Delivery O2 Flow Rate FiO2 11/16/18 04:31 99.3 85 20 131/77 (95) 94 11/16/18 00:00 99.6 93 20 128/83 (98) 97 11/15/18 21:00 Room Air 11/15/18 20:00 99.1 88 20 131/76 (94) 97 11/15/18 15:57 98.8 87 22 127/79 (95) 96 11/15/18 12:00 99.0 75 19 132/83 (99) 98 11/15/18 09:00 Nasal Cannula 2.0 11/15/18 08:00 99.1 94 18 128/69 (88) 99 Intake and Output 11/15/18 11/16/18 19:00 07:00 Intake Total 1000 ml 950 ml Output Total 1235 ml 770 ml Balance -235 ml 180 ml IV Total 1000 ml 950 ml Output Urine Total 1175 ml 740 ml Drainage Total 60 ml 30 ml # Voids 2 2 Height (Feet): 5 Height (Inches): 8.00 Weight (Pounds): 200 General Appearance: no apparent distress, alert EENT: normal ENT inspection Neck: normal alignment, supple Cardiovascular: normal rate, regular rhythm Respiratory/Chest: lungs clear, normal breath sounds Abdomen: non tender, soft Edema: no edema noted Arm (L), no edema noted Arm (R), no edema noted Leg (L), no edema noted Leg (R), no edema noted Pedal (L), no edema noted Pedal (R), no edema noted Generalized Rubens Cole MD Nov 16, 2018 07:32
[2018-11-16 08:11] LABS: BASOPHILS % (AUTO) 0.6 % (0.0-2.0); EOSINOPHILS % (AUTO) 0.7 % (0.0-3.0); HEMATOCRIT 36.7 % (42.0-52.0); HEMOGLOBIN 12.3 G/DL (14.2-18.0); LYMPHOCYTES % (AUTO) 20.4 % (20.0-45.0); MEAN CORPUSCULAR VOLUME 89 FL (80-99); MONOCYTES % (AUTO) 7.5 % (1.0-10.0); NEUTROPHILS % (AUTO) 70.9 % (45.0-75.0); PLATELET COUNT 346 K/UL (150-450); RED BLOOD COUNT 4.15 M/UL (4.70-6.10); RED CELL DISTRIBUTION WIDTH 10.8 % (11.6-14.8); WHITE BLOOD COUNT 9.9 K/UL (4.8-10.8)
[2018-11-16 08:36] VITALS: BP 134/75
[2018-11-16] MEDS: Heparin 5000 units/ml inj SUBQ SCH ×2 (09:00→20:59)
[2018-11-16] MEDS: Pantoprazole Inj IVP SCH (09:00)
[2018-11-16 09:09] LABS: ANION GAP 11 mmol/L (5-15); BLOOD UREA NITROGEN 9 mg/dL (7-18); CALCIUM 8.8 MG/DL (8.5-10.1); CARBON DIOXIDE 24 MMOL/L (21-32); CHLORIDE 104 MMOL/L (98-107); POTASSIUM 3.8 MMOL/L (3.5-5.1); SODIUM 139 MMOL/L (136-145)
--- NOTE | 2018-11-16 09:29 | Infectious Diseases Prog Note ---
Assessment/Plan Assessment/Plan chart was reviewed will cont pt on Zosyn # 1 full consult to follow Subjective Allergies: Coded Allergies: No Known Allergies (Unverified , 11/14/18) Objective Vital Signs Last 24 Hour Vital Signs Date Time Temp Pulse Resp B/P (MAP) Pulse Ox O2 Delivery O2 Flow Rate FiO2 11/16/18 08:36 99.3 71 21 134/75 (94) 96 11/16/18 04:31 99.3 85 20 131/77 (95) 94 11/16/18 00:00 99.6 93 20 128/83 (98) 97 11/15/18 21:00 Room Air 11/15/18 20:00 99.1 88 20 131/76 (94) 97 11/15/18 15:57 98.8 87 22 127/79 (95) 96 11/15/18 12:00 99.0 75 19 132/83 (99) 98 Height (Feet): 5 Height (Inches): 8.00 Weight (Pounds): 200 Microbiology Date/Time Source Procedure Growth Status 11/14/18 10:20 Abdominal Abscess Gram Stain - Final Resulted 11/14/18 10:20 Aerobic Culture - Preliminary Gram Negative Bacillus 1 Resulted 11/14/18 10:20 Abdominal Abscess Anaerobic Culture Pending Resulted Laboratory Tests Test 11/16/18 05:57 White Blood Count 9.9 K/UL (4.8-10.8) Red Blood Count 4.15 M/UL (4.70-6.10) L Hemoglobin 12.3 G/DL (14.2-18.0) L Hematocrit 36.7 % (42.0-52.0) L Mean Corpuscular Volume 89 FL (80-99) Mean Corpuscular Hemoglobin 29.7 PG (27.0-31.0) Mean Corpuscular Hemoglobin Concent 33.6 G/DL (32.0-36.0) Red Cell Distribution Width 10.8 % (11.6-14.8) L Platelet Count 346 K/UL (150-450) Mean Platelet Volume 6.4 FL (6.5-10.1) L Neutrophils (%) (Auto) 70.9 % (45.0-75.0) Lymphocytes (%) (Auto) 20.4 % (20.0-45.0) Monocytes (%) (Auto) 7.5 % (1.0-10.0) Eosinophils (%) (Auto) 0.7 % (0.0-3.0) Basophils (%) (Auto) 0.6 % (0.0-2.0) Sodium Level 139 MMOL/L (136-145) Potassium Level 3.8 MMOL/L (3.5-5.1) Chloride Level 104 MMOL/L (98-107) Carbon Dioxide Level 24 MMOL/L (21-32) Anion Gap 11 mmol/L (5-15) Blood Urea Nitrogen 9 mg/dL (7-18) Creatinine 1.0 MG/DL (0.55-1.30) Estimat Glomerular Filtration Rate > 60 mL/min (>60) Glucose Level 112 MG/DL (74-106) H Calcium Level 8.8 MG/DL (8.5-10.1) Current Medications Medications (Trade) Dose Ordered Sig/Mirza Route PRN Reason Start Time Stop Time Status Last Admin Dose Admin Acetaminophen (Tylenol) 650 mg Q4H PRN RECTAL T>100.5 11/14/18 23:01 12/14/18 23:00 Dextrose (Dextrose 50%) 25 ml Q30M PRN IV Hypoglycemia 11/14/18 16:00 12/14/18 15:59 Dextrose (Dextrose 50%) 50 ml Q30M PRN IV Hypoglycemia 11/14/18 16:00 12/14/18 15:59 Dextrose/ Electrolytes 1,000 ml @ 100 mls/hr Q10H IV 11/14/18 22:30 12/14/18 22:29 11/16/18 04:29 Heparin Sodium (Porcine) (Heparin 5000 units/ml) 5,000 units EVERY 12 HOURS SUBQ 11/15/18 09:00 12/15/18 08:59 11/16/18 09:00 Hydromorphone HCl (Dilaudid) 0.5 mg Q3H PRN IVP Pain Score 1-3 11/14/18 23:01 11/21/18 23:00 11/16/18 01:24 Hydromorphone HCl (Dilaudid) 1 mg Q3H PRN IVP pain score 4-6 11/14/18 23:01 11/21/18 23:00 11/16/18 06:30 Hydromorphone HCl (Dilaudid) 2 mg Q3H PRN IVP pain score 7-10 11/14/18 23:01 11/21/18 23:00 Metoclopramide HCl (Reglan) 10 mg Q6H PRN IVP Nausea & Vomiting 11/14/18 23:01 12/14/18 23:00 Morphine Sulfate (Morphine Sulfate) 1 mg Q4H PRN IVP PAIN 4-10 11/14/18 16:00 11/21/18 15:59 Ondansetron HCl (Zofran) 4 mg Q6H PRN IVP Nausea & Vomiting 11/14/18 16:00 12/14/18 15:59 Ondansetron HCl (Zofran) 4 mg Q6H PRN IVP Nausea & Vomiting 11/14/18 23:01 12/14/18 23:00 Pantoprazole (Protonix) 40 mg DAILY IVP 11/15/18 09:00 12/15/18 08:59 11/16/18 09:00 Piperacillin Sod/ Tazobactam Sod 4.5 gm/Sodium Chloride 110 ml @ 27.5 mls/hr EVERY 8 HOURS IVPB 11/14/18 23:00 11/21/18 22:59 11/16/18 05:29 Wale Bello MD Nov 16, 2018 09:29
[2018-11-16 11:48] VITALS: BP 127/87
--- NOTE | 2018-11-16 12:12 | General Surgery Progress Note ---
General Surgery-Progress Note Subjective Symptoms: improved Objective Last 24 Hour Vital Signs Date Time Temp Pulse Resp B/P (MAP) Pulse Ox O2 Delivery O2 Flow Rate FiO2 11/16/18 11:48 98.8 81 18 127/87 (100) 97 11/16/18 09:00 Room Air 11/16/18 08:36 99.3 71 21 134/75 (94) 96 11/16/18 04:31 99.3 85 20 131/77 (95) 94 11/16/18 00:00 99.6 93 20 128/83 (98) 97 11/15/18 21:00 Room Air 11/15/18 20:00 99.1 88 20 131/76 (94) 97 11/15/18 15:57 98.8 87 22 127/79 (95) 96 11/15/18 14:55 Room Air I&O Intake and Output 11/15/18 11/16/18 18:59 06:59 Intake Total 1100 ml 950 ml Output Total 1235 ml 770 ml Balance -135 ml 180 ml IV Total 1100 ml 950 ml Output Urine Total 1175 ml 740 ml Drainage Total 60 ml 30 ml # Voids 2 2 Dressing: dry Respiratory: clear Abdomen: soft, flat, absent bowel sounds Extremities: no tenderness Laboratory Tests Test 11/16/18 05:57 White Blood Count 9.9 K/UL (4.8-10.8) Red Blood Count 4.15 M/UL (4.70-6.10) L Hemoglobin 12.3 G/DL (14.2-18.0) L Hematocrit 36.7 % (42.0-52.0) L Mean Corpuscular Volume 89 FL (80-99) Mean Corpuscular Hemoglobin 29.7 PG (27.0-31.0) Mean Corpuscular Hemoglobin Concent 33.6 G/DL (32.0-36.0) Red Cell Distribution Width 10.8 % (11.6-14.8) L Platelet Count 346 K/UL (150-450) Mean Platelet Volume 6.4 FL (6.5-10.1) L Neutrophils (%) (Auto) 70.9 % (45.0-75.0) Lymphocytes (%) (Auto) 20.4 % (20.0-45.0) Monocytes (%) (Auto) 7.5 % (1.0-10.0) Eosinophils (%) (Auto) 0.7 % (0.0-3.0) Basophils (%) (Auto) 0.6 % (0.0-2.0) Sodium Level 139 MMOL/L (136-145) Potassium Level 3.8 MMOL/L (3.5-5.1) Chloride Level 104 MMOL/L (98-107) Carbon Dioxide Level 24 MMOL/L (21-32) Anion Gap 11 mmol/L (5-15) Blood Urea Nitrogen 9 mg/dL (7-18) Creatinine 1.0 MG/DL (0.55-1.30) Estimat Glomerular Filtration Rate > 60 mL/min (>60) Glucose Level 112 MG/DL (74-106) H Calcium Level 8.8 MG/DL (8.5-10.1) Assessment Additional Comments S/P perfed appy Plan Additional Comments Continue present treatment Lanie Chang MD Nov 16, 2018 12:12
[2018-11-16 15:33] VITALS: BP 118/78
--- NOTE | 2018-11-16 19:55 | NUR ---
HAND-OFF: Report given to Kristen RN/Faviola WILKINSON. AVI Output 100 ml
--- NOTE | 2018-11-16 20:15 | NUR ---
NURSE NOTES: Receive a report from MINH Eid. Pt is awake and alert but still noted nausea. No vomitus noted. Pt has not have gas passing yet. Bowel sound decreased. Encourage to ambulation. Pt and family members verbalize understanding. Administer prn Reglan IVP to reduce nausea sensation. Op site is clear and AVI drainage with serous color. Will continue to monitor.
[2018-11-16 20:45] VITALS: BP 126/81
--- NOTE | 2018-11-16 21:40 | NUR ---
NURSE NOTES: After ambulation, noted 7/10 on op site. Pt feels comfortable after prn pain medication. No N/V noted. No chilling and febrile sensation. Reinforce to use I/S every hour x10 while awake. Empty out 100ml serous color drainage from AVI on right side abdomen. IV ATB and IV fluid hydration running on left arm without infiltration. Continue on therapeutic NPO. Will continue to monitor.
[2018-11-17] MEDS: D5 1/2NS w/KCl 20mEq 1,000 ML IV SCH ×3 (00:23→20:29)
[2018-11-17 00:27] VITALS: BP 125/79
[2018-11-17] MEDS: HYDROmorphone 1mg/ml Carpuject IVP PRN ×5 (03:57→22:31)
[2018-11-17 04:00] VITALS: BP 123/81
[2018-11-17] MEDS: Piperacillin/Tazobactam 4.5 GM in NS 110 ML IVPB SCH ×2 (05:37→13:50)
[2018-11-17 06:04] LABS: ANION GAP 7 mmol/L (5-15); BLOOD UREA NITROGEN 12 mg/dL (7-18); CALCIUM 8.9 MG/DL (8.5-10.1); CARBON DIOXIDE 28 MMOL/L (21-32); CHLORIDE 104 MMOL/L (98-107); CREATININE 0.9 MG/DL (0.55-1.30); SODIUM 139 MMOL/L (136-145)
[2018-11-17 06:07] LABS: BASOPHILS % (AUTO) 0.5 % (0.0-2.0); EOSINOPHILS % (AUTO) 1.5 % (0.0-3.0); HEMATOCRIT 38.1 % (42.0-52.0); HEMOGLOBIN 12.7 G/DL (14.2-18.0); LYMPHOCYTES % (AUTO) 22.7 % (20.0-45.0); MEAN CORPUSCULAR VOLUME 88 FL (80-99); MONOCYTES % (AUTO) 9.4 % (1.0-10.0); NEUTROPHILS % (AUTO) 65.9 % (45.0-75.0); PLATELET COUNT 421 K/UL (150-450); RED BLOOD COUNT 4.33 M/UL (4.70-6.10); RED CELL DISTRIBUTION WIDTH 10.5 % (11.6-14.8); WHITE BLOOD COUNT 8.5 K/UL (4.8-10.8)
--- NOTE | 2018-11-17 07:30 | NUR ---
HAND-OFF: Report given to MINH Chew. Done round. Pt ambulate this morning with and pain tolerable state. Will continue to monitor.
--- NOTE | 2018-11-17 07:45 | NUR ---
NURSE NOTES: Received report from MINH Cueva. Rounding done with outgoing nurse. Patient a/o x4 , in bed. No respiratory distress noted. Denies any pain at this time. J/P drainage, serous noted. IV is patent, zosyn is running at this time. Bed in lowest position, call light within reach. Will continue to monitor.
[2018-11-17 08:00] VITALS: BP 119/71
[2018-11-17] MEDS: Pantoprazole Inj IVP SCH (08:33)
[2018-11-17] MEDS: Heparin 5000 units/ml inj SUBQ SCH ×2 (08:34→21:34)
--- NOTE | 2018-11-17 10:08 | NUR ---
NURSE NOTES: J/P output was 280ml during the mold shifter, J/P emptied 125ml around 0730 today, serous, yellowish color noted. Dr. Chang was notified and said it's okay, he will take a look at later.
[2018-11-17 12:00] VITALS: BP 125/80
--- NOTE | 2018-11-17 12:56 | NUR ---
CASE MANAGEMENT: REVIEW DATE OF OPERATION: 11/14/2018 PREOPERATIVE DIAGNOSIS: Acute perforated appendicitis. POSTOPERATIVE DIAGNOSIS: Acute perforated appendicitis with abscess. OPERATIONS: 1. Exploratory laparotomy. 2. Appendectomy. 3. Drainage of the intraabdominal abscess. 11/16/2018 SI: ACUTE APPENDICITIS. T 99 HR 84 RR 20 B/P 126/81 SATS 99% ON RA GLU 112 IS: IVF @ 100 mL/HR ZOSYN IV Q8H PROTONIX IV QD MED/SURG STATUS PLAN OF CARE: POST OP CARE 11/17/2018 SI: ACUTE APPENDICITIS. T 98.4 HR 70 RR 20 B/P 125/80 SATS 100% ON RA GLU 122 IS: IVF @ 100 mL/HR ZOSYN IV Q8H PROTONIX IV QD MED/SURG STATUS PLAN OF CARE: IV ANTIBx Addendum: 11/17/18 at 1303 by Gale Barnes CM INTERQUAL MET
--- NOTE | 2018-11-17 14:39 | General Progress Note ---
Assessment/Plan Problem List: (1) Appendicitis with perforation ICD Codes: K35.32 - Acute appendicitis with perforation and localized peritonitis, without abscess SNOMED: 87487375 Status Narrative s/p appendectomy - WBC better Assessment/Plan: still NPO pain meds cont with Abxs Subjective Allergies: Coded Allergies: No Known Allergies (Unverified , 11/14/18) Subjective C/O abd pain Objective Last 24 Hour Vital Signs Date Time Temp Pulse Resp B/P (MAP) Pulse Ox O2 Delivery O2 Flow Rate FiO2 11/17/18 12:00 98.4 70 20 125/80 (95) 100 11/17/18 09:00 Room Air 11/17/18 08:00 98.6 75 20 119/71 (87) 97 11/17/18 04:00 99.2 83 20 123/81 (95) 97 11/17/18 00:27 98.7 82 20 125/79 (94) 95 11/16/18 21:00 Room Air 11/16/18 20:45 99.0 84 20 126/81 (96) 99 11/16/18 15:33 98.4 91 18 118/78 (91) 96 Intake and Output 11/16/18 11/17/18 19:00 07:00 Intake Total 900 ml 1190 ml Output Total 1025 ml 880 ml Balance -125 ml 310 ml IV Total 900 ml 1190 ml Output Urine Total 925 ml 600 ml Drainage Total 100 ml 280 ml # Voids 4 3 Laboratory Tests 11/17/18 04:50: White Blood Count 8.5, Red Blood Count 4.33L, Hemoglobin 12.7L, Hematocrit 38.1L , Mean Corpuscular Volume 88, Mean Corpuscular Hemoglobin 29.4, Mean Corpuscular Hemoglobin Concent 33.4, Red Cell Distribution Width 10.5L, Platelet Count 421, Mean Platelet Volume 6.9, Neutrophils (%) (Auto) 65.9, Lymphocytes (%) (Auto) 22.7, Monocytes (%) (Auto) 9.4, Eosinophils (%) (Auto) 1.5, Basophils (%) (Auto) 0.5, Sodium Level 139, Potassium Level 4.0, Chloride Level 104, Carbon Dioxide Level 28, Anion Gap 7, Blood Urea Nitrogen 12, Creatinine 0.9, Estimat Glomerular Filtration Rate > 60, Glucose Level 122H, Calcium Level 8.9 Height (Feet): 5 Height (Inches): 8.00 Weight (Pounds): 200 Cardiovascular: normal rate Respiratory/Chest: lungs clear Abdomen: soft, tender Edema: no edema noted Generalized Gorge Cardenas MD Nov 17, 2018 14:39
--- NOTE | 2018-11-17 15:31 | General Surgery Progress Note ---
General Surgery-Progress Note Subjective Symptoms: improved Objective Last 24 Hour Vital Signs Date Time Temp Pulse Resp B/P (MAP) Pulse Ox O2 Delivery O2 Flow Rate FiO2 11/17/18 12:00 98.4 70 20 125/80 (95) 100 11/17/18 09:00 Room Air 11/17/18 08:00 98.6 75 20 119/71 (87) 97 11/17/18 04:00 99.2 83 20 123/81 (95) 97 11/17/18 00:27 98.7 82 20 125/79 (94) 95 11/16/18 21:00 Room Air 11/16/18 20:45 99.0 84 20 126/81 (96) 99 11/16/18 15:33 98.4 91 18 118/78 (91) 96 I&O Intake and Output 11/16/18 11/17/18 19:00 07:00 Intake Total 900 ml 1190 ml Output Total 1025 ml 880 ml Balance -125 ml 310 ml IV Total 900 ml 1190 ml Output Urine Total 925 ml 600 ml Drainage Total 100 ml 280 ml # Voids 4 3 Dressing: dry Wound: clean Drains: domonique Respiratory: clear Abdomen: soft, flat, non-tender, absent bowel sounds Extremities: no tenderness Laboratory Tests Test 11/17/18 04:50 White Blood Count 8.5 K/UL (4.8-10.8) Red Blood Count 4.33 M/UL (4.70-6.10) L Hemoglobin 12.7 G/DL (14.2-18.0) L Hematocrit 38.1 % (42.0-52.0) L Mean Corpuscular Volume 88 FL (80-99) Mean Corpuscular Hemoglobin 29.4 PG (27.0-31.0) Mean Corpuscular Hemoglobin Concent 33.4 G/DL (32.0-36.0) Red Cell Distribution Width 10.5 % (11.6-14.8) L Platelet Count 421 K/UL (150-450) Mean Platelet Volume 6.9 FL (6.5-10.1) Neutrophils (%) (Auto) 65.9 % (45.0-75.0) Lymphocytes (%) (Auto) 22.7 % (20.0-45.0) Monocytes (%) (Auto) 9.4 % (1.0-10.0) Eosinophils (%) (Auto) 1.5 % (0.0-3.0) Basophils (%) (Auto) 0.5 % (0.0-2.0) Sodium Level 139 MMOL/L (136-145) Potassium Level 4.0 MMOL/L (3.5-5.1) Chloride Level 104 MMOL/L (98-107) Carbon Dioxide Level 28 MMOL/L (21-32) Anion Gap 7 mmol/L (5-15) Blood Urea Nitrogen 12 mg/dL (7-18) Creatinine 0.9 MG/DL (0.55-1.30) Estimat Glomerular Filtration Rate > 60 mL/min (>60) Glucose Level 122 MG/DL (74-106) H Calcium Level 8.9 MG/DL (8.5-10.1) Assessment Additional Comments S/P perfed appy Plan Additional Comments Continue present treatment Lanie Chang MD Nov 17, 2018 15:31
[2018-11-17 16:00] VITALS: BP 107/71
--- NOTE | 2018-11-17 16:05 | Consultation ---
History of Present Illness General Date patient seen: Nov 17, 2018 Chief Complaint: Abdominal Pain Present Illness HPI 33 y/o M with hx of R tibia ORIF presented to ED on 11/14 with 1 week of abd pain ; it started on epigastrium and radiatied to RLQ. Also fevers and chills in the last 3-4 days prior to admission/ Patient was found to have perforated appendix w/ abscess formation. Underwent exp lap, appendectomy and drainage of abscess on 11/14 Denied cough, dysuria, frequency, diarrhea, vomtiing ID consulted for management of antibiotics Allergies: Coded Allergies: No Known Allergies (Unverified , 11/14/18) Medication History No Active Prescriptions or Reported Meds Patient History Healthcare decision maker N Resuscitation status Full Code Advanced Directive on File Patient History Narrative Pmhx: as above Shx: The patient is a 33-year-old male, who is and father of three children. He works as a pizza delivery. Denies smoking and drinking. Fhx: non contributory Review of Systems All Other Systems: negative except mentioned in HPI Physical Exam Physical Exam Narrative GENERAL: The patient is awake, alert, not in distress. HEENT: Extraocular muscles intact. No lymphadenopathy noted. Oropharyngeal mucosa is clear and dry. CARDIOVASCULAR: S1, S2. No rubs or gallops. Regular rate. PULMONARY: Clear to auscultation bilaterally. No rales, rhonchi, or wheezes. ABDOMINAL: Mild right lower quadrant tenderness in the epigastric area with fair bowel sounds. EXTREMITIES: No edema noted. Last 24 Hour Vital Signs Date Time Temp Pulse Resp B/P (MAP) Pulse Ox O2 Delivery O2 Flow Rate FiO2 11/17/18 12:00 98.4 70 20 125/80 (95) 100 11/17/18 09:00 Room Air 11/17/18 08:00 98.6 75 20 119/71 (87) 97 11/17/18 04:00 99.2 83 20 123/81 (95) 97 11/17/18 00:27 98.7 82 20 125/79 (94) 95 11/16/18 21:00 Room Air 11/16/18 20:45 99.0 84 20 126/81 (96) 99 Intake and Output 11/16/18 11/17/18 18:59 06:59 Intake Total 1000 ml 1090 ml Output Total 1025 ml 880 ml Balance -25 ml 210 ml IV Total 1000 ml 1090 ml Output Urine Total 925 ml 600 ml Drainage Total 100 ml 280 ml # Voids 4 3 Laboratory Tests Test 11/17/18 04:50 White Blood Count 8.5 K/UL (4.8-10.8) Red Blood Count 4.33 M/UL (4.70-6.10) L Hemoglobin 12.7 G/DL (14.2-18.0) L Hematocrit 38.1 % (42.0-52.0) L Mean Corpuscular Volume 88 FL (80-99) Mean Corpuscular Hemoglobin 29.4 PG (27.0-31.0) Mean Corpuscular Hemoglobin Concent 33.4 G/DL (32.0-36.0) Red Cell Distribution Width 10.5 % (11.6-14.8) L Platelet Count 421 K/UL (150-450) Mean Platelet Volume 6.9 FL (6.5-10.1) Neutrophils (%) (Auto) 65.9 % (45.0-75.0) Lymphocytes (%) (Auto) 22.7 % (20.0-45.0) Monocytes (%) (Auto) 9.4 % (1.0-10.0) Eosinophils (%) (Auto) 1.5 % (0.0-3.0) Basophils (%) (Auto) 0.5 % (0.0-2.0) Sodium Level 139 MMOL/L (136-145) Potassium Level 4.0 MMOL/L (3.5-5.1) Chloride Level 104 MMOL/L (98-107) Carbon Dioxide Level 28 MMOL/L (21-32) Anion Gap 7 mmol/L (5-15) Blood Urea Nitrogen 12 mg/dL (7-18) Creatinine 0.9 MG/DL (0.55-1.30) Estimat Glomerular Filtration Rate > 60 mL/min (>60) Glucose Level 122 MG/DL (74-106) H Calcium Level 8.9 MG/DL (8.5-10.1) Height (Feet): 5 Height (Inches): 8.00 Weight (Pounds): 200 Medications Current Medications Medications (Trade) Dose Ordered Sig/Mirza Route PRN Reason Start Time Stop Time Status Last Admin Dose Admin Acetaminophen (Tylenol) 650 mg Q4H PRN RECTAL T>100.5 11/14/18 23:01 12/14/18 23:00 Dextrose (Dextrose 50%) 25 ml Q30M PRN IV Hypoglycemia 11/14/18 16:00 12/14/18 15:59 Dextrose (Dextrose 50%) 50 ml Q30M PRN IV Hypoglycemia 11/14/18 16:00 12/14/18 15:59 Dextrose/ Electrolytes 1,000 ml @ 100 mls/hr Q10H IV 11/14/18 22:30 12/14/18 22:29 11/17/18 10:34 Heparin Sodium (Porcine) (Heparin 5000 units/ml) 5,000 units EVERY 12 HOURS SUBQ 11/15/18 09:00 12/15/18 08:59 11/17/18 08:34 Hydromorphone HCl (Dilaudid) 0.5 mg Q3H PRN IVP Pain Score 1-3 11/14/18 23:01 11/21/18 23:00 11/16/18 01:24 Hydromorphone HCl (Dilaudid) 1 mg Q3H PRN IVP pain score 4-6 11/14/18 23:01 11/21/18 23:00 11/17/18 13:49 Hydromorphone HCl (Dilaudid) 2 mg Q3H PRN IVP pain score 7-10 11/14/18 23:01 11/21/18 23:00 11/16/18 20:58 Levofloxacin 150 ml @ 100 mls/hr Q24H IVPB 11/17/18 17:00 11/24/18 16:59 Metoclopramide HCl (Reglan) 10 mg Q6H PRN IVP Nausea & Vomiting 11/14/18 23:01 12/14/18 23:00 11/16/18 20:11 Morphine Sulfate (Morphine Sulfate) 1 mg Q4H PRN IVP PAIN 4-10 11/14/18 16:00 11/21/18 15:59 Ondansetron HCl (Zofran) 4 mg Q6H PRN IVP Nausea & Vomiting 11/14/18 16:00 12/14/18 15:59 11/16/18 15:47 Ondansetron HCl (Zofran) 4 mg Q6H PRN IVP Nausea & Vomiting 11/14/18 23:01 12/14/18 23:00 Pantoprazole (Protonix) 40 mg DAILY IVP 11/15/18 09:00 12/15/18 08:59 11/17/18 08:33 Assessment/Plan Assessment/Plan: Abx: Levaquin 11/17- Zosyn 11/14-11/17 Assessment: Perforated appendcitis c/w abscess -11/14 SP Exploratory laparotomy. Appendectomy. Drainage of the intraabdominal abscess. ---OR findings: inflammatory mass at the right lower quadrant, this included cecum, omentum, and small bowel. Upon dissection, an abscess cavity and large amount of pus was drained. The appendix was identified. The appendix had dense adhesion, which was gradually released. the help of the KRISTINA stapler. --OR cx: Organism 1 ESCHERICHIA COLI (R amp, bactrim) GROWTH: 1+ Organism 2 STREP SPECIES, ALPHA HEMOLYTIC GROWTH: 1+ Organism 3 STREPTOCOCCUS GROUP F GROWTH: 1+ Organism 4 B. fragilis 11/14 CT abd/p: Marked inflammation in the right lower quadrant in the expected location of the appendix. 2 calcifications in the central aspect of what appears to be a phlegmon may be appendicoliths. The findings are concerning for acute appendicitis with rupture.No drainable abscess identified. Low grade fever, improving Leukocytosis, SP -u/a neg hx of R tibia ORIF Plan: -Switch Levaquin #1 (abx d #4) to Ceftriaxone and Flagyl; will treat for 7 days from day of surgery (expected end date 11/20/18) -upon discharge, can be transitioned to PO Augmentin 875/125mg bid -11/17 SP Zosyn #4 -f/u cx -Monitor CBC/CMP, temperatures -wound care per surgical team -aspiration precautions Thank you for this consultation. Will continue to follow along with you. Discussed with Diane Partida M.D. Nov 17, 2018 16:05
--- NOTE | 2018-11-17 17:02 | NUR ---
NURSE NOTES: Dr. Chang came and ordered open to air on mid abdominal area, dry dressing on J/P drainage catheter area. Noted and carried out.
--- NOTE | 2018-11-17 17:30 | NUR ---
NURSE NOTES: Change dressing was done on J/P drainage catheter area.
--- NOTE | 2018-11-17 19:23 | NUR ---
HAND-OFF: Report given to MINH Muñoz. Pt is stable.
--- NOTE | 2018-11-17 20:00 | NUR ---
NURSE NOTES: Patient in bed, AOx4. IV in place, running IV fluids. No complaints of pain at this time. No s/s distress noted. Abdominal sutures open to air, dry and intact. Dressing around AVI drain on the right side dry and intact. AVI drain on the right side in place, draining serous yellow fluid. Bed in lowest position, call light within reach. Will continue to monitor.
--- NOTE | 2018-11-17 20:30 | NUR ---
NURSE NOTES: Patient is ambulating around the nursing unit with 's assistance.
[2018-11-17 20:45] VITALS: BP 124/80
[2018-11-17] MEDS: cefTRIAXone 2 GM in D5W 55 ML IVPB SCH (21:29)
--- NOTE | 2018-11-17 21:41 | NUR ---
NURSE NOTES: Called and left message for Dr. Kingston's answering service regarding Flagyl 500 mg PO medication since patient is strict NPO (as endorsed by am nurse), awaiting response.
[2018-11-17] MEDS ORDERED: metroNIDAZOLE 500mg tab ORAL SCH (22:00)
[2018-11-18 00:05] VITALS: BP 114/73
[2018-11-18] MEDS: HYDROmorphone 1mg/ml Carpuject IVP PRN ×5 (03:07→20:23)
[2018-11-18 04:49] VITALS: BP 121/74
[2018-11-18] MEDS: D5 1/2NS w/KCl 20mEq 1,000 ML IV SCH ×2 (05:41→15:02)
[2018-11-18 06:30] LABS: BASOPHILS % (AUTO) 0.8 % (0.0-2.0); EOSINOPHILS % (AUTO) 6.1 % (0.0-3.0); HEMATOCRIT 36.7 % (42.0-52.0); HEMOGLOBIN 12.3 G/DL (14.2-18.0); LYMPHOCYTES % (AUTO) 25.9 % (20.0-45.0); MEAN CORPUSCULAR VOLUME 88 FL (80-99); MONOCYTES % (AUTO) 8.3 % (1.0-10.0); NEUTROPHILS % (AUTO) 58.9 % (45.0-75.0); PLATELET COUNT 390 K/UL (150-450); RED BLOOD COUNT 4.15 M/UL (4.70-6.10); RED CELL DISTRIBUTION WIDTH 10.8 % (11.6-14.8); WHITE BLOOD COUNT 7.1 K/UL (4.8-10.8)
--- NOTE | 2018-11-18 07:35 | NUR ---
HAND-OFF: Report given to ELODIA MALLORY RN.
--- NOTE | 2018-11-18 07:40 | NUR ---
NURSE NOTES: WALKING ROUNDS DONE WITH OUTGOING RN. PATIENT AWAKE IN BED.QUESTIONS ANSWERED, NEEDS MET. SURGICAL SITE NEEDLEWORKER WITH CONI, NO FLATUS PRESENT. DISCUSSED PLAN OF CARE FOR THE DAY. VERBALIZED UNDERSTANDING. CALL LIGHT WITHIN REACH. BED IN LOWEST AND LOCKED POSITION.
[2018-11-18 08:00] VITALS: BP 120/77
[2018-11-18] MEDS: Pantoprazole Inj IVP SCH (09:03)
[2018-11-18] MEDS: Heparin 5000 units/ml inj SUBQ SCH ×2 (09:04→21:31)
--- NOTE | 2018-11-18 10:36 | Infectious Diseases Prog Note ---
Assessment/Plan Assessment/Plan Abx: Levaquin 11/17- Zosyn 11/14-11/17 Assessment: Perforated appendicitis c/w abscess -11/14 SP Exploratory laparotomy. Appendectomy. Drainage of the intraabdominal abscess. ---OR findings: inflammatory mass at the right lower quadrant, this included cecum, omentum, and small bowel. Upon dissection, an abscess cavity and large amount of pus was drained. The appendix was identified. The appendix had dense adhesion, which was gradually released. the help of the KRISTINA stapler. --OR cx: Organism 1 ESCHERICHIA COLI (R amp, bactrim) GROWTH: 1+ Organism 2 STREP SPECIES, ALPHA HEMOLYTIC GROWTH: 1+ Organism 3 STREPTOCOCCUS GROUP F GROWTH: 1+ Organism 4 B. fragilis 11/14 CT abd/p: Marked inflammation in the right lower quadrant in the expected location of the appendix. 2 calcifications in the central aspect of what appears to be a phlegmon may be appendicoliths. The findings are concerning for acute appendicitis with rupture.No drainable abscess identified. Low grade fever, SP Leukocytosis, SP -u/a neg hx of R tibia ORIF Plan: -Continue Ceftriaxone and Flagyl #2 (abx d #5); will treat for 7 days from day of surgery (expected end date 11/20/18) -upon discharge, can be transitioned to PO Augmentin 875/125mg bid -11/17 SP Zosyn #4, Levaquin #1 -f/u cx -Monitor CBC/CMP, temperatures -wound care per surgical team -aspiration precautions Thank you for this consultation. Will continue to follow along with you. Discussed with RN. Subjective Allergies: Coded Allergies: No Known Allergies (Unverified , 11/14/18) Subjective afebrile >72hrs no leukocytosis Objective Vital Signs Last 24 Hour Vital Signs Date Time Temp Pulse Resp B/P (MAP) Pulse Ox O2 Delivery O2 Flow Rate FiO2 11/18/18 08:00 97.6 67 18 120/77 (91) 99 11/18/18 07:35 98.6 11/18/18 04:49 98.6 66 18 121/74 (90) 97 11/18/18 00:05 98.5 70 18 114/73 (87) 97 11/17/18 22:31 Room Air 11/17/18 20:45 98.9 73 18 124/80 (95) 96 11/17/18 16:00 98.4 69 20 107/71 (83) 96 11/17/18 12:00 98.4 70 20 125/80 (95) 100 Height (Feet): 5 Height (Inches): 8.00 Weight (Pounds): 200 Objective GENERAL: The patient is awake, alert, not in distress. HEENT: Extraocular muscles intact. No lymphadenopathy noted. Oropharyngeal mucosa is clear and dry. CARDIOVASCULAR: S1, S2. No rubs or gallops. Regular rate. PULMONARY: Clear to auscultation bilaterally. No rales, rhonchi, or wheezes. ABDOMINAL: Mild right lower quadrant tenderness in the epigastric area with fair bowel sounds. EXTREMITIES: No edema noted. Laboratory Tests Test 11/18/18 04:45 White Blood Count 7.1 K/UL (4.8-10.8) Red Blood Count 4.15 M/UL (4.70-6.10) L Hemoglobin 12.3 G/DL (14.2-18.0) L Hematocrit 36.7 % (42.0-52.0) L Mean Corpuscular Volume 88 FL (80-99) Mean Corpuscular Hemoglobin 29.5 PG (27.0-31.0) Mean Corpuscular Hemoglobin Concent 33.4 G/DL (32.0-36.0) Red Cell Distribution Width 10.8 % (11.6-14.8) L Platelet Count 390 K/UL (150-450) Mean Platelet Volume 6.1 FL (6.5-10.1) L Neutrophils (%) (Auto) 58.9 % (45.0-75.0) Lymphocytes (%) (Auto) 25.9 % (20.0-45.0) Monocytes (%) (Auto) 8.3 % (1.0-10.0) Eosinophils (%) (Auto) 6.1 % (0.0-3.0) H Basophils (%) (Auto) 0.8 % (0.0-2.0) Current Medications Medications (Trade) Dose Ordered Sig/Mirza Route PRN Reason Start Time Stop Time Status Last Admin Dose Admin Acetaminophen (Tylenol) 650 mg Q4H PRN RECTAL T>100.5 11/14/18 23:01 12/14/18 23:00 Ceftriaxone Sodium 2 gm/ Dextrose 55 ml @ 110 mls/hr Q24H IVPB 11/17/18 22:00 11/24/18 21:59 11/17/18 21:29 Dextrose (Dextrose 50%) 25 ml Q30M PRN IV Hypoglycemia 11/14/18 16:00 12/14/18 15:59 Dextrose (Dextrose 50%) 50 ml Q30M PRN IV Hypoglycemia 11/14/18 16:00 12/14/18 15:59 Dextrose/ Electrolytes 1,000 ml @ 100 mls/hr Q10H IV 11/14/18 22:30 12/14/18 22:29 11/18/18 05:41 Heparin Sodium (Porcine) (Heparin 5000 units/ml) 5,000 units EVERY 12 HOURS SUBQ 11/15/18 09:00 12/15/18 08:59 11/18/18 09:04 Hydromorphone HCl (Dilaudid) 0.5 mg Q3H PRN IVP Pain Score 1-3 11/14/18 23:01 11/21/18 23:00 11/16/18 01:24 Hydromorphone HCl (Dilaudid) 1 mg Q3H PRN IVP pain score 4-6 11/14/18 23:01 11/21/18 23:00 11/18/18 10:30 Hydromorphone HCl (Dilaudid) 2 mg Q3H PRN IVP pain score 7-10 11/14/18 23:01 11/21/18 23:00 11/16/18 20:58 Metoclopramide HCl (Reglan) 10 mg Q6H PRN IVP Nausea & Vomiting 11/14/18 23:01 12/14/18 23:00 11/16/18 20:11 Metronidazole 100 ml @ 100 mls/hr Q8HR IVPB 11/17/18 23:00 11/24/18 22:59 11/18/18 05:41 Morphine Sulfate (Morphine Sulfate) 1 mg Q4H PRN IVP PAIN 4-10 11/14/18 16:00 11/21/18 15:59 Ondansetron HCl (Zofran) 4 mg Q6H PRN IVP Nausea & Vomiting 11/14/18 16:00 12/14/18 15:59 11/16/18 15:47 Ondansetron HCl (Zofran) 4 mg Q6H PRN IVP Nausea & Vomiting 11/14/18 23:01 12/14/18 23:00 Pantoprazole (Protonix) 40 mg DAILY IVP 11/15/18 09:00 12/15/18 08:59 11/18/18 09:03 Diane Kingston M.D. Nov 18, 2018 10:36
[2018-11-18 12:00] VITALS: BP 111/75
--- NOTE | 2018-11-18 12:37 | NUR ---
CASE MANAGEMENT: REVIEW 11/18/2018 SI: ACUTE APPENDICITIS. T 97.6 HR 67 RR 18 B/P 120/77 SATS 99% ON RA LABS WNL IS: IVF @ 100 mL/HR ZOSYN IV Q8H PROTONIX IV QD MED/SURG STATUS PLAN OF CARE: IV ANTIBx OPEN AIR MID ABD AREA WOUND CARE
--- NOTE | 2018-11-18 13:48 | General Progress Note ---
Assessment/Plan Problem List: (1) Appendicitis with perforation ICD Codes: K35.32 - Acute appendicitis with perforation and localized peritonitis, without abscess SNOMED: 02832096 Assessment/Plan: still NPO pain meds cont with Abxs Subjective Allergies: Coded Allergies: No Known Allergies (Unverified , 11/14/18) Subjective C/O abd pain Objective Last 24 Hour Vital Signs Date Time Temp Pulse Resp B/P (MAP) Pulse Ox O2 Delivery O2 Flow Rate FiO2 11/18/18 12:00 97.9 72 16 111/75 (87) 98 11/18/18 11:00 97.6 11/18/18 09:00 Room Air 11/18/18 08:00 97.6 67 18 120/77 (91) 99 11/18/18 04:49 98.6 66 18 121/74 (90) 97 11/18/18 00:05 98.5 70 18 114/73 (87) 97 11/17/18 22:31 Room Air 11/17/18 20:45 98.9 73 18 124/80 (95) 96 11/17/18 16:00 98.4 69 20 107/71 (83) 96 Intake and Output 11/17/18 11/18/18 19:00 07:00 Intake Total 1127.5 ml 1055 ml Output Total 915 ml 1040 ml Balance 212.5 ml 15 ml IV Total 1127.5 ml 1055 ml Output Urine Total 600 ml 900 ml Drainage Total 315 ml 140 ml Laboratory Tests 11/18/18 04:45: White Blood Count 7.1, Red Blood Count 4.15L, Hemoglobin 12.3L, Hematocrit 36.7L , Mean Corpuscular Volume 88, Mean Corpuscular Hemoglobin 29.5, Mean Corpuscular Hemoglobin Concent 33.4, Red Cell Distribution Width 10.8L, Platelet Count 390, Mean Platelet Volume 6.1L, Neutrophils (%) (Auto) 58.9, Lymphocytes (%) (Auto) 25.9, Monocytes (%) (Auto) 8.3, Eosinophils (%) (Auto) 6.1H, Basophils (%) (Auto) 0.8 Height (Feet): 5 Height (Inches): 8.00 Weight (Pounds): 200 Cardiovascular: normal rate Respiratory/Chest: lungs clear Abdomen: soft, distended Edema: no edema noted Generalized Rahban,Gorge MD Nov 18, 2018 13:48
--- NOTE | 2018-11-18 14:33 | General Surgery Progress Note ---
General Surgery-Progress Note Subjective Symptoms: improved, passing flatus Objective Last 24 Hour Vital Signs Date Time Temp Pulse Resp B/P (MAP) Pulse Ox O2 Delivery O2 Flow Rate FiO2 11/18/18 14:20 97.9 11/18/18 12:00 97.9 72 16 111/75 (87) 98 11/18/18 09:00 Room Air 11/18/18 08:00 97.6 67 18 120/77 (91) 99 11/18/18 04:49 98.6 66 18 121/74 (90) 97 11/18/18 00:05 98.5 70 18 114/73 (87) 97 11/17/18 22:31 Room Air 11/17/18 20:45 98.9 73 18 124/80 (95) 96 11/17/18 16:00 98.4 69 20 107/71 (83) 96 I&O Intake and Output 11/17/18 11/18/18 19:00 07:00 Intake Total 1127.5 ml 1055 ml Output Total 915 ml 1040 ml Balance 212.5 ml 15 ml IV Total 1127.5 ml 1055 ml Output Urine Total 600 ml 900 ml Drainage Total 315 ml 140 ml Wound: clean, intact Drains: domonique Respiratory: clear Abdomen: soft, flat, non-tender, decreased bowel sounds Extremities: no tenderness Laboratory Tests Test 11/18/18 04:45 White Blood Count 7.1 K/UL (4.8-10.8) Red Blood Count 4.15 M/UL (4.70-6.10) L Hemoglobin 12.3 G/DL (14.2-18.0) L Hematocrit 36.7 % (42.0-52.0) L Mean Corpuscular Volume 88 FL (80-99) Mean Corpuscular Hemoglobin 29.5 PG (27.0-31.0) Mean Corpuscular Hemoglobin Concent 33.4 G/DL (32.0-36.0) Red Cell Distribution Width 10.8 % (11.6-14.8) L Platelet Count 390 K/UL (150-450) Mean Platelet Volume 6.1 FL (6.5-10.1) L Neutrophils (%) (Auto) 58.9 % (45.0-75.0) Lymphocytes (%) (Auto) 25.9 % (20.0-45.0) Monocytes (%) (Auto) 8.3 % (1.0-10.0) Eosinophils (%) (Auto) 6.1 % (0.0-3.0) H Basophils (%) (Auto) 0.8 % (0.0-2.0) Assessment Additional Comments S/P perfed appy with abscess Plan Additional Comments continue antibiotics Lanie Chang MD Nov 18, 2018 14:33
[2018-11-18 16:00] VITALS: BP 118/78
--- NOTE | 2018-11-18 17:10 | NUR ---
NURSE NOTES: PATIENT TOLERATING CLEARS, NO N/V NOTED. UP AMBULATING. GAIT STEADY.
[2018-11-18] MEDS: Docusate Sod/Senna tab ORAL SCH (17:38)
--- NOTE | 2018-11-18 18:33 | NUR ---
NURSE NOTES: C/O NAUSEA AFTER EATING CLEAR LIQUIDS; OFFERED ANTI-EMETIC BUT REFUSED AT THIS TIME. WILL CONTINUE TO MONITOR.
--- NOTE | 2018-11-18 19:25 | NUR ---
NURSE NOTES: Report received from MINH Vargas. Patient awake, alert. Visitors at bedside. Bed in low position, locked, side rails up x2. Call light within reach. Patient up in chair tolerating well.
--- NOTE | 2018-11-18 19:29 | NUR ---
HAND-OFF: Report given to ANA ALANIS RN.
[2018-11-18 20:00] VITALS: BP 116/74
[2018-11-18] MEDS: cefTRIAXone 2 GM in D5W 55 ML IVPB SCH (23:00)
[2018-11-19] VITALS: BP 121/67
[2018-11-19] MEDS: D5 1/2NS w/KCl 20mEq 1,000 ML IV SCH ×3 (01:00→23:31)
--- NOTE | 2018-11-19 01:25 | NUR ---
NURSE NOTES: Sleeping quietly, no distress noted.
[2018-11-19 04:00] VITALS: BP 114/68
[2018-11-19 06:51] LABS: BASOPHILS % (AUTO) 1.2 % (0.0-2.0); EOSINOPHILS % (AUTO) 4.9 % (0.0-3.0); HEMATOCRIT 37.4 % (42.0-52.0); HEMOGLOBIN 12.5 G/DL (14.2-18.0); LYMPHOCYTES % (AUTO) 32.4 % (20.0-45.0); MEAN CORPUSCULAR VOLUME 88 FL (80-99); MONOCYTES % (AUTO) 8.3 % (1.0-10.0); NEUTROPHILS % (AUTO) 53.1 % (45.0-75.0); PLATELET COUNT 426 K/UL (150-450); RED BLOOD COUNT 4.27 M/UL (4.70-6.10); RED CELL DISTRIBUTION WIDTH 10.5 % (11.6-14.8); WHITE BLOOD COUNT 6.9 K/UL (4.8-10.8)
--- NOTE | 2018-11-19 07:25 | NUR ---
HAND-OFF: Report given to MIHN Cates.
[2018-11-19 08:00] VITALS: BP 113/78
--- NOTE | 2018-11-19 08:03 | NUR ---
NURSE NOTES: Patient alert x4, on room air, no sign of distress and shortness of breath; no chest pain; IV LAC [id number] running at 100cc; patient feels nausated and vomiting, patient doesn't wanna get Zofran, will keep monitoring, AVI on the right side; bed at lowest position, side rails up x2, breaks engaged; call light within reach, will keep monitoring.
--- NOTE | 2018-11-19 08:33 | Nephrology Progress Note ---
Assessment/Plan Assessment/Plan: A/P 1) Appendicitis- Abx and IVFs to continue. - s/p appendectomy - WBC improved - Continue Abx per ID 2) DVT prophylaxsis- SCDs DC oncleared by Gen Surgery on oral Abx per ID Subjective Date patient seen: Nov 19, 2018 Time patient seen: 08:32 ROS Limited/Unobtainable: No Allergies: Coded Allergies: No Known Allergies (Unverified , 11/14/18) Subjective Patient feeling better, little nauseated Objective Last 24 Hour Vital Signs Date Time Temp Pulse Resp B/P (MAP) Pulse Ox O2 Delivery O2 Flow Rate FiO2 11/19/18 08:00 98.1 69 20 113/78 (90) 97 11/19/18 04:00 98.2 62 17 114/68 (83) 96 11/19/18 00:00 98.7 69 19 121/67 (85) 96 11/18/18 21:00 Room Air 11/18/18 20:00 98.9 73 17 116/74 (88) 95 11/18/18 16:00 97.5 70 18 118/78 (91) 98 11/18/18 14:20 97.9 11/18/18 12:00 97.9 72 16 111/75 (87) 98 11/18/18 09:00 Room Air Intake and Output 11/18/18 11/19/18 19:00 07:00 Intake Total 1320 ml 1440 ml Output Total 130 ml 60 ml Balance 1190 ml 1380 ml Intake Oral 120 ml 240 ml IV Total 1200 ml 1200 ml Drainage Total 130 ml 60 ml # Voids 3 3 Laboratory Tests 11/19/18 06:15: White Blood Count 6.9, Red Blood Count 4.27L, Hemoglobin 12.5L, Hematocrit 37.4L , Mean Corpuscular Volume 88, Mean Corpuscular Hemoglobin 29.3, Mean Corpuscular Hemoglobin Concent 33.4, Red Cell Distribution Width 10.5L, Platelet Count 426, Mean Platelet Volume 6.2L, Neutrophils (%) (Auto) 53.1, Lymphocytes (%) (Auto) 32.4, Monocytes (%) (Auto) 8.3, Eosinophils (%) (Auto) 4.9H, Basophils (%) (Auto) 1.2 Height (Feet): 5 Height (Inches): 8.00 Weight (Pounds): 207 General Appearance: no apparent distress, alert EENT: normal ENT inspection Neck: normal alignment, supple Cardiovascular: normal rate, regular rhythm Respiratory/Chest: lungs clear, normal breath sounds Abdomen: non tender, soft Edema: no edema noted Arm (L), no edema noted Arm (R), no edema noted Leg (L), no edema noted Leg (R), no edema noted Pedal (L), no edema noted Pedal (R), no edema noted Generalized Rubens Cole MD Nov 19, 2018 08:33
[2018-11-19] MEDS: Docusate Sod/Senna tab ORAL SCH ×2 (08:42→17:09)
[2018-11-19] MEDS: Pantoprazole Inj IVP SCH (08:42)
[2018-11-19] MEDS: HYDROmorphone 1mg/ml Carpuject IVP PRN ×4 (08:46→23:32)
[2018-11-19] MEDS: Heparin 5000 units/ml inj SUBQ SCH ×2 (08:46→21:04)
--- NOTE | 2018-11-19 10:42 | NUR ---
RD ASSESSMENT & RECOMMENDATIONS SEE CARE ACTIVITY FOR COMPLETE ASSESSMENT DAILY ESTIMATED NEEDS: Needs based on Surgery/ 76kg abw 25-30 kcals/kg 3146-3533 total kcals 1-2 g protein/kg 76-152 g total protein 25-30 mL/kg 8627-1867 total fluid mLs NUTRITION DIAGNOSIS: Altered GI function R/T admitted w/ appendicitis with perforation, s/p ex lap, appendectomy and drainage of abscess as evidenced by pt on CLD, c/o N/V. CURRENT DIET:CLEAR LIQUID DIET PO DIET RECOMMENDATIONS: Advance diet per surgeon ADDITIONAL RECOMMENDATIONS: * Ensure Clear TID w/ meals while on clear liquid diet * Monitor for diet upgrade and PO tolerance
[2018-11-19 12:00] VITALS: BP 128/83
--- NOTE | 2018-11-19 14:07 | Infectious Diseases Prog Note ---
Assessment/Plan Assessment/Plan Abx: Levaquin 11/17- Zosyn 11/14-11/17 Assessment: Perforated appendicitis c/w abscess -11/14 SP Exploratory laparotomy. Appendectomy. Drainage of the intraabdominal abscess. ---OR findings: inflammatory mass at the right lower quadrant, this included cecum, omentum, and small bowel. Upon dissection, an abscess cavity and large amount of pus was drained. The appendix was identified. The appendix had dense adhesion, which was gradually released. the help of the KRISTINA stapler. --OR cx: Organism 1 ESCHERICHIA COLI (R amp, bactrim) GROWTH: 1+ Organism 2 STREP SPECIES, ALPHA HEMOLYTIC GROWTH: 1+ Organism 3 STREPTOCOCCUS GROUP F GROWTH: 1+ Organism 4 B. fragilis 11/14 CT abd/p: Marked inflammation in the right lower quadrant in the expected location of the appendix. 2 calcifications in the central aspect of what appears to be a phlegmon may be appendicoliths. The findings are concerning for acute appendicitis with rupture.No drainable abscess identified. Low grade fever, SP Leukocytosis, SP -u/a neg hx of R tibia ORIF Plan: -Continue Ceftriaxone and Flagyl #3 (abx d #6); will treat for 7 days from day of surgery (expected end date 11/20/18) -upon discharge, can be transitioned to PO Augmentin 875/125mg bid -11/17 SP Zosyn #4, Levaquin #1 -f/u cx -Monitor CBC/CMP, temperatures -wound care per surgical team -aspiration precautions Thank you for this consultation. Will continue to follow along with you. Discussed with RN. Subjective Allergies: Coded Allergies: No Known Allergies (Unverified , 11/14/18) Subjective afebrile hrs no leukocytosis on clear liquid diet now Objective Vital Signs Last 24 Hour Vital Signs Date Time Temp Pulse Resp B/P (MAP) Pulse Ox O2 Delivery O2 Flow Rate FiO2 11/19/18 12:00 97.4 68 20 128/83 (98) 97 11/19/18 09:16 98.1 11/19/18 09:00 Room Air 11/19/18 08:00 98.1 69 20 113/78 (90) 97 11/19/18 04:00 98.2 62 17 114/68 (83) 96 11/19/18 00:00 98.7 69 19 121/67 (85) 96 11/18/18 21:00 Room Air 11/18/18 20:00 98.9 73 17 116/74 (88) 95 11/18/18 16:00 97.5 70 18 118/78 (91) 98 Height (Feet): 5 Height (Inches): 8.00 Weight (Pounds): 207 Objective GENERAL: The patient is awake, alert, not in distress. HEENT: Extraocular muscles intact. No lymphadenopathy noted. Oropharyngeal mucosa is clear and dry. CARDIOVASCULAR: S1, S2. No rubs or gallops. Regular rate. PULMONARY: Clear to auscultation bilaterally. No rales, rhonchi, or wheezes. ABDOMINAL: Mild right lower quadrant tenderness in the epigastric area with fair bowel sounds. EXTREMITIES: No edema noted. Laboratory Tests Test 11/19/18 06:15 White Blood Count 6.9 K/UL (4.8-10.8) Red Blood Count 4.27 M/UL (4.70-6.10) L Hemoglobin 12.5 G/DL (14.2-18.0) L Hematocrit 37.4 % (42.0-52.0) L Mean Corpuscular Volume 88 FL (80-99) Mean Corpuscular Hemoglobin 29.3 PG (27.0-31.0) Mean Corpuscular Hemoglobin Concent 33.4 G/DL (32.0-36.0) Red Cell Distribution Width 10.5 % (11.6-14.8) L Platelet Count 426 K/UL (150-450) Mean Platelet Volume 6.2 FL (6.5-10.1) L Neutrophils (%) (Auto) 53.1 % (45.0-75.0) Lymphocytes (%) (Auto) 32.4 % (20.0-45.0) Monocytes (%) (Auto) 8.3 % (1.0-10.0) Eosinophils (%) (Auto) 4.9 % (0.0-3.0) H Basophils (%) (Auto) 1.2 % (0.0-2.0) Current Medications Medications (Trade) Dose Ordered Sig/Mirza Route PRN Reason Start Time Stop Time Status Last Admin Dose Admin Acetaminophen (Tylenol) 650 mg Q4H PRN RECTAL T>100.5 11/14/18 23:01 12/14/18 23:00 Ceftriaxone Sodium 2 gm/ Dextrose 55 ml @ 110 mls/hr Q24H IVPB 11/17/18 22:00 11/24/18 21:59 11/18/18 23:00 Dextrose (Dextrose 50%) 25 ml Q30M PRN IV Hypoglycemia 11/14/18 16:00 12/14/18 15:59 Dextrose (Dextrose 50%) 50 ml Q30M PRN IV Hypoglycemia 11/14/18 16:00 12/14/18 15:59 Dextrose/ Electrolytes 1,000 ml @ 100 mls/hr Q10H IV 11/14/18 22:30 12/14/18 22:29 11/19/18 13:24 Heparin Sodium (Porcine) (Heparin 5000 units/ml) 5,000 units EVERY 12 HOURS SUBQ 11/15/18 09:00 12/15/18 08:59 11/19/18 08:46 Hydromorphone HCl (Dilaudid) 0.5 mg Q3H PRN IVP Pain Score 1-3 11/14/18 23:01 11/21/18 23:00 11/16/18 01:24 Hydromorphone HCl (Dilaudid) 1 mg Q3H PRN IVP pain score 4-6 11/14/18 23:01 11/21/18 23:00 11/19/18 08:46 Metoclopramide HCl (Reglan) 10 mg Q6H PRN IVP Nausea & Vomiting 11/14/18 23:01 12/14/18 23:00 11/16/18 20:11 Metronidazole 100 ml @ 100 mls/hr Q8HR IVPB 11/17/18 23:00 11/24/18 22:59 11/19/18 13:25 Ondansetron HCl (Zofran) 4 mg Q6H PRN IVP Nausea & Vomiting 11/14/18 16:00 12/14/18 15:59 11/16/18 15:47 Ondansetron HCl (Zofran) 4 mg Q6H PRN IVP Nausea & Vomiting 11/14/18 23:01 12/14/18 23:00 Pantoprazole (Protonix) 40 mg DAILY IVP 11/15/18 09:00 12/15/18 08:59 11/19/18 08:42 Senna/Docusate Sodium (Navya-Colace) 1 tab TWICE A DAY ORAL 11/18/18 18:00 12/18/18 17:59 11/19/18 08:42 Diane Kingston M.D. Nov 19, 2018 14:07
--- NOTE | 2018-11-19 15:40 | General Surgery Progress Note ---
General Surgery-Progress Note Subjective Symptoms: improved, BM Objective Last 24 Hour Vital Signs Date Time Temp Pulse Resp B/P (MAP) Pulse Ox O2 Delivery O2 Flow Rate FiO2 11/19/18 12:00 97.4 68 20 128/83 (98) 97 11/19/18 09:16 98.1 11/19/18 09:00 Room Air 11/19/18 08:00 98.1 69 20 113/78 (90) 97 11/19/18 04:00 98.2 62 17 114/68 (83) 96 11/19/18 00:00 98.7 69 19 121/67 (85) 96 11/18/18 21:00 Room Air 11/18/18 20:00 98.9 73 17 116/74 (88) 95 11/18/18 16:00 97.5 70 18 118/78 (91) 98 I&O Intake and Output 11/18/18 11/19/18 19:00 07:00 Intake Total 1320 ml 1440 ml Output Total 130 ml 60 ml Balance 1190 ml 1380 ml Intake Oral 120 ml 240 ml IV Total 1200 ml 1200 ml Drainage Total 130 ml 60 ml # Voids 3 3 Dressing: bloody Respiratory: clear Abdomen: soft, flat, present bowel sounds Extremities: no tenderness Laboratory Tests Test 11/19/18 06:15 White Blood Count 6.9 K/UL (4.8-10.8) Red Blood Count 4.27 M/UL (4.70-6.10) L Hemoglobin 12.5 G/DL (14.2-18.0) L Hematocrit 37.4 % (42.0-52.0) L Mean Corpuscular Volume 88 FL (80-99) Mean Corpuscular Hemoglobin 29.3 PG (27.0-31.0) Mean Corpuscular Hemoglobin Concent 33.4 G/DL (32.0-36.0) Red Cell Distribution Width 10.5 % (11.6-14.8) L Platelet Count 426 K/UL (150-450) Mean Platelet Volume 6.2 FL (6.5-10.1) L Neutrophils (%) (Auto) 53.1 % (45.0-75.0) Lymphocytes (%) (Auto) 32.4 % (20.0-45.0) Monocytes (%) (Auto) 8.3 % (1.0-10.0) Eosinophils (%) (Auto) 4.9 % (0.0-3.0) H Basophils (%) (Auto) 1.2 % (0.0-2.0) Assessment Additional Comments S/P perfed appy Plan Additional Comments continue present treatment Lanie Chang MD Nov 19, 2018 15:40
[2018-11-19 16:00] VITALS: BP 115/71
--- NOTE | 2018-11-19 17:38 | NUR ---
CASE MANAGEMENT: REVIEW 11/19/2018 SI: ACUTE APPENDICITIS. T 98.2 HR 62 RR 17 B/P 114/68 SATS 96% ON RA LABS WNL IS: IVF @ 100 mL/HR FLAGYL IV Q8H CEFTRIAXONE IV Q24H PROTONIX IV QD MED/SURG STATUS PLAN OF CARE: IV ANTIBx OPEN AIR MID ABD AREA WOUND CARE
--- NOTE | 2018-11-19 19:41 | NUR ---
HAND-OFF: Report given to MINH Ng.
[2018-11-19 20:00] VITALS: BP 116/66
[2018-11-19] MEDS: cefTRIAXone 2 GM in D5W 55 ML IVPB SCH (22:29)
[2018-11-20] VITALS: BP 113/68
--- NOTE | 2018-11-20 00:54 | NUR ---
NURSE NOTES: Sleeping, no diestress noted.
[2018-11-20 04:00] VITALS: BP 111/69
[2018-11-20] MEDS: Hydromorphone 0.5mg/0.5ml inj IVP PRN (06:21)
--- NOTE | 2018-11-20 06:30 | NUR ---
NURSE NOTES: Slept on and off, no distress noted at this time. see eMAR for pain meds.
--- NOTE | 2018-11-20 07:30 | NUR ---
HAND-OFF: Report given to MINH Eid.
--- NOTE | 2018-11-20 07:40 | NUR ---
NURSE NOTES: Report received from Silvana WILKINSON, rounds made. Patient up ambulating in halls, gait steady. No distress on RA. Denies need for pain medication at this time. IVF infusing to LAC as ordered. Abdominal angelique AVI VILLATORO intact, draining serous output. Call light in reach, bed in lowest position, will continue to monitor.
[2018-11-20 08:00] VITALS: BP 111/70
[2018-11-20] MEDS: D5 1/2NS w/KCl 20mEq 1,000 ML IV SCH (08:30)
[2018-11-20] MEDS: Docusate Sod/Senna tab ORAL SCH ×2 (10:21→17:55)
[2018-11-20] MEDS: Heparin 5000 units/ml inj SUBQ SCH (10:21)
[2018-11-20] MEDS: Pantoprazole Inj IVP SCH (10:22)
[2018-11-20] MEDS: HYDROmorphone 1mg/ml Carpuject IVP PRN ×2 (10:22→14:33)
[2018-11-20 12:00] VITALS: BP 111/71
--- NOTE | 2018-11-20 13:00 | General Progress Note ---
Assessment/Plan Problem List: (1) Appendicitis with perforation ICD Codes: K35.32 - Acute appendicitis with perforation and localized peritonitis, without abscess SNOMED: 26431718 Assessment/Plan: diet per surgery pain meds cont with Abxs Subjective Allergies: Coded Allergies: No Known Allergies (Unverified , 11/14/18) Subjective tolerating liquid diet Objective Last 24 Hour Vital Signs Date Time Temp Pulse Resp B/P (MAP) Pulse Ox O2 Delivery O2 Flow Rate FiO2 11/20/18 06:51 98.1 11/20/18 04:00 98.1 63 20 111/69 (83) 95 11/20/18 00:00 98.7 63 20 113/68 (83) 95 11/19/18 21:00 Room Air 11/19/18 20:00 97.9 61 20 116/66 (83) 97 11/19/18 16:00 98.5 71 20 115/71 (86) 98 11/19/18 15:47 97.4 Intake and Output 11/19/18 11/20/18 19:00 07:00 Intake Total 1960 ml 1560 ml Output Total 70 ml 55 ml Balance 1890 ml 1505 ml Intake Oral 960 ml 560 ml IV Total 1000 ml 1000 ml Drainage Total 70 ml 55 ml Height (Feet): 5 Height (Inches): 8.00 Weight (Pounds): 207 Cardiovascular: normal rate Respiratory/Chest: lungs clear Abdomen: soft Gorge Cardenas MD Nov 20, 2018 13:00
--- NOTE | 2018-11-20 14:35 | NUR ---
NURSE NOTES: RN scanned to administer Flagyl at 1433, was going to administer, but Dr. Chang said it is not needed. RN marked Flagyl as UNDO. Patient did not received Flagyl at 1433.
--- NOTE | 2018-11-20 14:51 | General Surgery Progress Note ---
General Surgery-Progress Note Subjective Symptoms: improved, BM Objective Last 24 Hour Vital Signs Date Time Temp Pulse Resp B/P (MAP) Pulse Ox O2 Delivery O2 Flow Rate FiO2 11/20/18 06:51 98.1 11/20/18 04:00 98.1 63 20 111/69 (83) 95 11/20/18 00:00 98.7 63 20 113/68 (83) 95 11/19/18 21:00 Room Air 11/19/18 20:00 97.9 61 20 116/66 (83) 97 11/19/18 16:00 98.5 71 20 115/71 (86) 98 11/19/18 15:47 97.4 I&O Intake and Output 11/19/18 11/20/18 19:00 07:00 Intake Total 1960 ml 1560 ml Output Total 70 ml 55 ml Balance 1890 ml 1505 ml Intake Oral 960 ml 560 ml IV Total 1000 ml 1000 ml Drainage Total 70 ml 55 ml Wound: clean, intact Respiratory: clear Abdomen: soft, non-tender, present bowel sounds Extremities: no tenderness Assessment Additional Comments S/P perfed appy Plan Additional Comments discharge to home Lanie Chang MD Nov 20, 2018 14:51
--- NOTE | 2018-11-20 14:52 | Discharge Instructions ---
Discharge Instructions Discharge Instructions Follow up with: my office one week Diet: regular Resume Normal Activity?: Yes Activity: as tolerated For Surgical Patients May shower: Yes For Congestive Heart Failure Reminder Report to your physician any weight gain of 5 pounds or more in one week. Lanie Chang MD Nov 20, 2018 14:52
--- NOTE | 2018-11-20 15:30 | NUR ---
NURSE NOTES: [place] and AVI discontinued/steri strips (mid abdominal site) and new dressing applied (AVI site) by Dr. Chang at 1440. Reassessed remains CDI.
--- NOTE | 2018-11-20 15:52 | NUR ---
CASE MANAGEMENT: REVIEW 11/20/2018 SI: ACUTE APPENDICITIS. T 98.1 HR 63 RR 20 B/P 111/69 SATS 95% ON RA NO LABS TODAY IS: IVF @ 100 mL/HR FLAGYL IV Q8H CEFTRIAXONE IV Q24H PROTONIX IV QD MED/SURG STATUS PLAN OF CARE: IV ANTIBx OPEN AIR MID ABD AREA WOUND CARE
[2018-11-20 16:00] VITALS: BP 115/66
--- NOTE | 2018-11-20 16:59 | Infectious Diseases Prog Note ---
Assessment/Plan Assessment/Plan Assessment: Perforated appendicitis c/w abscess -11/14 SP Exploratory laparotomy. Appendectomy. Drainage of the intraabdominal abscess. ---OR findings: inflammatory mass at the right lower quadrant, this included cecum, omentum, and small bowel. Upon dissection, an abscess cavity and large amount of pus was drained. The appendix was identified. The appendix had dense adhesion, which was gradually released. the help of the KRISTINA stapler. --OR cx: Organism 1 ESCHERICHIA COLI (R amp, bactrim) GROWTH: 1+ Organism 2 STREP SPECIES, ALPHA HEMOLYTIC GROWTH: 1+ Organism 3 STREPTOCOCCUS GROUP F GROWTH: 1+ Organism 4 B. fragilis 11/14 CT abd/p: Marked inflammation in the right lower quadrant in the expected location of the appendix. 2 calcifications in the central aspect of what appears to be a phlegmon may be appendicoliths. The findings are concerning for acute appendicitis with rupture.No drainable abscess identified. Low grade fever, SP Leukocytosis, SP -u/a neg hx of R tibia ORIF Plan: -Continue Ceftriaxone and Flagyl #4 (abx d #7); will treat for 7 days from day of surgery (expected end date 11/20/18) -upon discharge, can be transitioned to PO Augmentin 875/125mg bid -11/17 SP Zosyn #4, Levaquin #1 -f/u cx -Monitor CBC/CMP, temperatures -wound care per surgical team -aspiration precautions Thank you for this consultation. Will continue to follow along with you. Discussed with RN. Subjective Allergies: Coded Allergies: No Known Allergies (Unverified , 11/14/18) Subjective afebrile hrs no leukocytosis had BM on full liquid diet discharge planning Objective Vital Signs Last 24 Hour Vital Signs Date Time Temp Pulse Resp B/P (MAP) Pulse Ox O2 Delivery O2 Flow Rate FiO2 11/20/18 06:51 98.1 11/20/18 04:00 98.1 63 20 111/69 (83) 95 11/20/18 00:00 98.7 63 20 113/68 (83) 95 11/19/18 21:00 Room Air 11/19/18 20:00 97.9 61 20 116/66 (83) 97 Height (Feet): 5 Height (Inches): 8.00 Weight (Pounds): 207 Objective GENERAL: The patient is awake, alert, not in distress. HEENT: Extraocular muscles intact. No lymphadenopathy noted. Oropharyngeal mucosa is clear and dry. CARDIOVASCULAR: S1, S2. No rubs or gallops. Regular rate. PULMONARY: Clear to auscultation bilaterally. No rales, rhonchi, or wheezes. ABDOMINAL: Mild right lower quadrant tenderness in the epigastric area with fair bowel sounds. EXTREMITIES: No edema noted. Current Medications Medications (Trade) Dose Ordered Sig/Mirza Route PRN Reason Start Time Stop Time Status Last Admin Dose Admin Acetaminophen (Tylenol) 650 mg Q4H PRN RECTAL T>100.5 11/14/18 23:01 12/14/18 23:00 Ceftriaxone Sodium 2 gm/ Dextrose 55 ml @ 110 mls/hr Q24H IVPB 11/17/18 22:00 11/24/18 21:59 11/19/18 22:29 Dextrose (Dextrose 50%) 25 ml Q30M PRN IV Hypoglycemia 11/14/18 16:00 12/14/18 15:59 Dextrose (Dextrose 50%) 50 ml Q30M PRN IV Hypoglycemia 11/14/18 16:00 12/14/18 15:59 Heparin Sodium (Porcine) (Heparin 5000 units/ml) 5,000 units EVERY 12 HOURS SUBQ 11/15/18 09:00 12/15/18 08:59 11/20/18 10:21 Hydromorphone HCl (Dilaudid) 0.5 mg Q3H PRN IVP Pain Score 1-3 11/14/18 23:01 11/21/18 23:00 11/20/18 06:21 Hydromorphone HCl (Dilaudid) 1 mg Q3H PRN IVP pain score 4-6 11/14/18 23:01 11/21/18 23:00 11/20/18 14:33 Metoclopramide HCl (Reglan) 10 mg Q6H PRN IVP Nausea & Vomiting 11/14/18 23:01 12/14/18 23:00 11/16/18 20:11 Metronidazole 100 ml @ 100 mls/hr Q8HR IVPB 11/17/18 23:00 11/24/18 22:59 11/20/18 14:31 Ondansetron HCl (Zofran) 4 mg Q6H PRN IVP Nausea & Vomiting 11/14/18 16:00 12/14/18 15:59 11/16/18 15:47 Ondansetron HCl (Zofran) 4 mg Q6H PRN IVP Nausea & Vomiting 11/14/18 23:01 12/14/18 23:00 Pantoprazole (Protonix) 40 mg DAILY IVP 11/15/18 09:00 12/15/18 08:59 11/20/18 10:22 Senna/Docusate Sodium (Navya-Colace) 1 tab TWICE A DAY ORAL 11/19/18 18:00 12/19/18 17:59 11/20/18 10:21 Diane Kingston M.D. Nov 20, 2018 16:59
[2018-11-20] MEDS ORDERED: LEVAQUIN500 MG ORAL (18:22)
[2018-11-20] MEDS ORDERED: TRAMADOL HCL50 MG ORAL (18:23)
[2018-11-20] MEDS ORDERED: SENNA-DOCUSATE1 EACH PO (18:25)
--- NOTE | 2018-11-20 18:45 | NUR ---
NURSE NOTES: Discharge instructions and prescription x1 reviewed with patient and spouse, verbalized understanding. IV discontinued, no active bleeding. All belongings, discharge instructions and prescription x1 given to patient. Patient sent down to lobby via in stable condition. Discharged home at 1845.
--- NOTE | 2018-11-21 12:23 | Discharge Summary ---
Discharge Summary Discharge Summary _ DATE OF ADMISSION: 11/14/2018 DATE OF DISCHARGE: 11/20/2018 CONSULTANTS: Dr. Diane Chang BRIEF HOSPITAL COURSE: Patient is a 33-year-old gentleman, with no significant past medical history, presented to emergency room due to 10 days of abdominal pain and nausea. The patient had no vomiting or diarrhea. Abdominal pain was mainly in the epigastric region, that started 10 days prior to admission, which she attributed to heavy fatty meal. Symptoms had progressively gotten worse. On evaluation at the ED, CT scan of the abdomen and pelvis demonstrated marked inflammation in the right lower quadrant, expected location of the appendix with 2 calcifications in the central aspect, which appeared to be phlegmon or appendicolith. Findings were concerning for acute appendicitis ruptured. There was no drainable abscess identified. He was slightly febrile. WBC was elevated to 13 with a left shift. Chemistry and UA were normal. He was placed on n.p.o. He was given IV antibiotics. Surgical consultation was obtained. On 11/14/2018, he underwent exploratory laparotomy with appendectomy and drainage of intra-abdominal abscess. He tolerated procedure well. First day postop, WBC was still elevated. He was continued on IV antibiotics. Continued on n.p.o. status. Await return of bowel function. He was encouraged use of incentive spirometry. He was continued on DVT prophylaxis. ID was consulted. Culture from intra-abdominal abscess showed growth of E. coli , Streptococcus and Bacteroides. Zosyn was discontinued. Levaquin was transitioned to ceftriaxone and continued on Flagyl. On 11/18/2018, patient was passing flatus. There were decreased bowel sounds. He was started on clear liquid diet. Diet was eventually advanced. He was tolerating diet. There was no leukocytosis and patient was afebrile. He was discharged home. FINAL DIAGNOSES: Ruptured appendicitis status post exploratory laparotomy with appendectomy and drainage of intra-abdominal abscess DISPOSITION: Patient was discharged home. DISCHARGE MEDICATIONS: Refer to Discharge Medication List. DISCHARGE INSTRUCTIONS: Follow-up in a week. I have been assigned to complete a discharge summary on this account, I was not involved with the patient's management.--SUNI Duff Jacqueline Robles NP Nov 21, 2018 12:23
--- NOTE | 2018-11-21 16:20 | Cardiology Report ---
APPROVED REPORT EKG Measurement Heart [id number] MD [id number] Normal sinus rhythm Minimal voltage criteria for LVH, may be normal variant Borderline ECG
== END 2018-11-20 18:56 | disposition home or self-care (01) | DRG 233 ==
LOC: EMR 12:40 → 3E 13:09 → EDBEDREQ 14:11 → 3E 14:48 → EDBEDREQ 15:12 → 3E 15:26
PROC: 0DTJ0ZZ Resection of Appendix, Open Approach (ICD-10-PCS; principal; 2018-11-14 19:45)
DX: K35.33 Acute appendicitis with perforation, localized peritonitis, and gangrene, with abscess (principal); E86.9 Volume depletion, unspecified
CPT/HCPCS: 36415; 71045; 74176; 80048; 80053; 80307; 80329; 81001; 81003; 82550; 83690; 84484; 85007; 85025; 85610; 85730; 86850; 86900; 86901; 87070; 87075; 87181; 87205; 93005; 94003; 94150; 96361; 96365; 96375; 99285; C9399; J2405; J2710; J2765

== ENCOUNTER 2018-11-22 10:17 | Emergency (ER) | payer MEDICAID ==
[~2018-11-22] VITALS: Ht 170.2 cm; Wt 90.7 kg
[~2018-11-22 10:17] MED LIST: LEVAQUIN500 MG ORAL; SENNA-DOCUSATE1 EACH PO; TRAMADOL HCL50 MG ORAL
[2018-11-22 10:43] VITALS: BP 106/72
--- NOTE | 2018-11-22 10:44 | NUR ---
ED Nurse Note:pt. came with openning on lower part of his abdominal surgical incision, s/p abdominal surgery
[2018-11-22] MEDS ORDERED: CEPHALEXIN500 MG ORAL (11:28)
--- NOTE | 2018-11-22 11:50 | NUR ---
ER DISCHARGE NOTE: Patient is cleared to be discharged per ERMD, pt is aox4, on room air, with stable vital signs. pt was given dc and prescription instructions, pt was able to verbalize understanding, pt is able to ambulate with steady gait. pt took all belongings.
[2018-11-22 12:56] VITALS: BP 106/72
--- NOTE | 2018-11-22 14:10 | Emergency Room Report ---
History of Present Illness General Chief Complaint: Wound Recheck/Suture Removal Source: Patient Present Illness HPI Patient had recent surgery secondary to a perforated appendix Patient had angelique removed recently This morning after awakening he noticed that the lower part of the incision had opened and presents for further evaluation denies any fevers or chills there is some clear discharge from the area denies any abdominal pain Denies any chest pain or shortness of breath Patient's procedure was performed at this hospital Allergies: Coded Allergies: No Known Allergies (Unverified , 11/14/18) Patient History Past Medical History: see triage record Pertinent Family History: none Reviewed Nursing Documentation: PMH: Agreed; PSxH: Agreed Nursing Documentation-PMH Past Medical History: No Stated History Hx Cardiac Problems: No Hx Cancer: No Hx Gastrointestinal Problems: No Hx Neurological Problems: No Review of Systems All Other Systems: negative except mentioned in HPI Physical Exam Vital Signs Date Time Temp Pulse Resp B/P (MAP) Pulse Ox O2 Delivery O2 Flow Rate FiO2 11/22/18 10:25 98.2 74 16 106/72 (83) 98 Room Air Sp02 EP Interpretation: reviewed, normal General Appearance: well appearing, no apparent distress Head: normocephalic, atraumatic Eyes: bilateral eye PERRL, bilateral eye EOMI ENT: hearing grossly normal, normal pharynx, TMs + canals normal, uvula midline Neck: full range of motion, supple, no meningismus, no bony tend Respiratory: lungs clear, normal breath sounds, no rhonchi, no respiratory distress, no retraction, no accessory muscle use Cardiovascular #1: normal peripheral pulses, regular rate, rhythm, no edema, no gallop, no JVD, no murmur Gastrointestinal: normal bowel sounds, non tender - See below for skin exam, soft, no mass, no organomegaly, non-distended, no guarding, no hernia, no pulsatile mass, no rebound Genitourinary: no CVA tenderness Musculoskeletal: normal inspection Neurologic: oriented x3, responsive, poultry picking machine tender III-XII nml as tested, motor strength/ tone normal, sensory intact Psychiatric: mood/affect normal Skin: other - At the very distal aspect of the surgical site there is a small approximately 1 cm dehisced area the surrounding site is clear and non- erythematous Lymphatic: normal inspection, no adenopathy Medical Decision Making Diagnostic Impression: Primary Impression: Encounter for wound re-check ER Course After discussion with the patient's general surgeon the area was cleansed and prepped We did discuss packing versus closure It was recommended to close the area The area was approximated using 2 angelique Patient tolerated the procedure well Patient reports that he is currently on antibiotics and will return with any concerns or changes Last Vital Signs Date Time Temp Pulse Resp B/P (MAP) Pulse Ox O2 Delivery O2 Flow Rate FiO2 11/22/18 12:56 98.2 80 16 106/72 98 Room Air Status: improved Disposition: HOME, SELF-CARE Condition: Improved Scripts Cephalexin* (KEFLEX*) 500 Mg Capsule 500 MG ORAL EVERY 6 HOURS for 7 Days, CAP Prov: Ana Clemente DO 11/22/18 Referrals: NOT CHOSEN IPA/,REFERRING (PCP) Lanie Chang MD Patient Instructions: Wound Dehiscence, [id number] Additional Instructions: Patient is provided with the discharge instructions notified to follow up with primary doctor in the next 2-3 days otherwise return to the er with any worsening symptoms. Please note that this report is being documented using [employer] technology. This can lead to erroneous entry secondary to incorrect interpretation by the dictating instrument. Ana Clemente DO Nov 22, 2018 14:10
== END 2018-11-22 12:00 | disposition home or self-care (01) ==
LOC: EMR 10:43
DX: T81.30XA Disruption of wound, unspecified, initial encounter (principal); X58.XXXA Exposure to other specified factors, initial encounter; Y92.9 Unspecified place or not applicable
CPT/HCPCS: 99282

== ENCOUNTER 2018-12-01 09:46 | Emergency (ER) | payer MEDICAID ==
[~2018-12-01] VITALS: Ht 170.2 cm; Wt 90.7 kg
[~2018-12-01 09:46] MED LIST changes: +CEPHALEXIN500 MG ORAL
[2018-12-01] MEDS ORDERED: NKM (09:59)
[2018-12-01 10:16] VITALS: BP 125/80
[2018-12-01 10:18] VITALS: BP 125/80
--- NOTE | 2018-12-01 10:18 | NUR ---
ER DISCHARGE NOTE: Patient is cleared to be discharged per ERMD, pt is aox4, on room air, with stable vital signs. pt was given dc instructions, pt was able to verbalize understanding. pt is able to ambulate with steady gait. pt took all belongings.
--- NOTE | 2018-12-01 10:52 | Emergency Room Report ---
History of Present Illness General Chief Complaint: Wound Recheck/Suture Removal Source: Patient Present Illness HPI Patient presents for reevaluation of his sutures and angelique Patient was here previously with wound dehiscence and 2 angelique that were placed patient had a complicated initial surgery with ruptured appendix This was about 10 days ago when the patient had dehiscence and had more angelique placed in the emergency room patient has not been able to see his general surgeon since then He feels that there is some minimal discharge from the area Denies any pain denies any fevers denies any redness Allergies: Coded Allergies: No Known Allergies (Unverified , 11/14/18) Patient History Past Medical History: see triage record Pertinent Family History: none Reviewed Nursing Documentation: PMH: Agreed; PSxH: Agreed Nursing Documentation-PMH Past Medical History: No Stated History Hx Cardiac Problems: No Hx Cancer: No Hx Gastrointestinal Problems: No Hx Neurological Problems: No Review of Systems All Other Systems: negative except mentioned in HPI Physical Exam Vital Signs Date Time Temp Pulse Resp B/P (MAP) Pulse Ox O2 Delivery O2 Flow Rate FiO2 12/01/18 09:54 98.2 91 19 125/80 (95) 99 Room Air Sp02 EP Interpretation: reviewed, normal General Appearance: well appearing, no apparent distress Head: normocephalic, atraumatic Eyes: bilateral eye PERRL, bilateral eye EOMI ENT: normal pharynx Neck: supple Respiratory: lungs clear Cardiovascular #1: regular rate, rhythm Gastrointestinal: other - [address] at the lower aspect of the surgical site the area appears to be healing with initial scab formation,, there is a very small distal point which appears to have some oozing but no obvious fluctuance Musculoskeletal: normal inspection Neurologic: alert, oriented x3 Psychiatric: normal inspection Skin: other - As above Lymphatic: no adenopathy Medical Decision Making Diagnostic Impression: Primary Impression: Encounter for wound re-check ER Course The area in question is evaluated there appears to be healing in process however the skin does not appear to be fully healed No obvious fluctuance Mild serosanguineous discharge noted at the very distal aspect The angelique are not appropriate for removal at this time and the patient was provided follow-up with his General surgeon for the next 2 to 3 days Last Vital Signs Date Time Temp Pulse Resp B/P (MAP) Pulse Ox O2 Delivery O2 Flow Rate FiO2 12/01/18 10:18 98.2 69 19 125/80 99 Room Air Status: unchanged Disposition: HOME, SELF-CARE Condition: Stable Referrals: Lanie Chang MD NOT CHOSEN IPA/,REFERRING (PCP) [facility] Octaviano Walker [facility]. [facility] Patient Instructions: Wound Check Additional Instructions: Patient is provided with the discharge instructions notified to follow up with primary doctor in the next 2-3 days otherwise return to the er with any worsening symptoms. Please note that this report is being documented using [employer] technology. This can lead to erroneous entry secondary to incorrect interpretation by the dictating instrument. Ana Clemente DO Dec 01, 2018 10:52
== END 2018-12-01 10:20 | disposition home or self-care (01) ==
LOC: EMR 10:12
DX: Z48.02 Encounter for removal of sutures (principal)
CPT/HCPCS: 99281